=== PATIENT | female | born 1965 | race Caucasian/White ===

== ENCOUNTER 2023-11-21 09:49 | Outpatient (OUT) | payer OTHER, SELFPAY ==
--- NOTE | 2023-11-21 09:54 | MM_ITS ---
Patient Name: NAVA BARLOW MR#: [id number] : 1965 Exam Date: 11/21/2023 Ordering Doctor: MARIXA ESPINOZA RADIOLOGY REPORT PROCEDURE: MM TOMOSYNTHESIS SCREENING BI COMPARISON: MG MAMM SCREEN 3D JUSTO CAD, 10/23/2021. MG MAMM SCREEN 3D JUSTO CAD, 11/17/2022. INDICATIONS: Screening Calculator Name NCI Breast Cancer Risk Assessment Tool 5 Year Breast Cancer Risk 2.70% Lifetime Breast Cancer Risk 13.90% Personal Breast Cancer No Personal Ovarian Cancer No Treatments None Family Cancers Mother with breast cancer at age 67. LOCATION: [facility] BREAST COMPOSITION: The breasts are heterogeneously dense,which may obscure small masses. FINDINGS: DIAGNOSTIC CATEGORY 2--BENIGN FINDING. NO CHANGE FROM COMPARISON. Scattered benign-appearing calcifications are present. RIGHT BREAST: No significant suspicious finding. LEFT BREAST: No significant suspicious finding. RECOMMENDATIONS: ROUTINE MAMMOGRAM AND CLINICAL EVALUATION IN 12 MONTHS. PLEASE NOTE: A NORMAL MAMMOGRAM DOES NOT EXCLUDE THE POSSIBILITY OF BREAST CANCER. A CLINICALLY SUSPICIOUS PALPABLE LUMP SHOULD BE BIOPSIED. Dictated by: Tony Parsons MD on 11/21/2023 at 10:47 Approved by: Tony Parsons MD on 11/21/2023 at 11:04
== END 2023-11-21 09:50 | disposition home or self-care (01) ==
LOC: MAMMO 09:49
DX: Z12.31 Encounter for screening mammogram for malignant neoplasm of breast (principal); Z80.3 Family history of malignant neoplasm of breast
CPT/HCPCS: 77063; 77067

== ENCOUNTER 2023-11-21 10:35 | Outpatient (OUT) | payer OTHER, SELFPAY ==
[2023-11-21 11:08] LABS: Hematocrit 39.9 % (36.0-48.0); Hemoglobin 12.8 g/dL (12.0-16.0); Mean Corpuscular HGB Conc 32.1 g/dL (29.9-35.2); Mean Corpuscular Hemoglobin 31.1 pg (26.7-34.0); Mean Corpuscular Volume 97.1 fL (81.0-99.0); Platelet Count 199 10^3/uL (150-450); Red Blood Count 4.11 10^6/uL (4.20-5.40); Red Cell Distribution Width 12.8 % (11.0-15.0); White Blood Count 6.7 10^3/uL (4.0-11.0)
[2023-11-21 11:41] LABS: Estimated Average Glucose 128 mg/dL; Glycohemoglobin A1C 6.1 % (4.5-6.2)
[2023-11-21 12:14] LABS: Alanine Aminotransferase 26 U/L (14-59); Albumin Globulin Ratio 1.4; Alkaline Phosphatase 70 U/L (46-116); Aspartate Amino Transferase 14 U/L (15-37); BUN Creatinine Ratio 32.4; Bilirubin Total 0.8 mg/dL (0.2-1.0); Calcium 9.3 mg/dL (8.5-10.1); Carbon Dioxide 27.6 mmol/L (21.0-32.0); Chloride 107 mmol/L (98-107); Chol HDL Ratio 2.8; Cholesterol 126 mg/dL (<=200); Estimated GFR (African America >60 (>=60); Estimated GFR (Non-African Ame >60 (>=60); Globulin 2.8 g/dL; Glucose 109 mg/dL (74-106); HDL Cholesterol 45 mg/dL (40-60); LDL Cholesterol Calculated 64.2 mg/dL; Potassium 3.6 mmol/L (3.5-5.1); Sodium 143 mmol/L (136-145); Total Protein 6.8 g/dL (6.4-8.2); Triglycerides 84 mg/dL (<=150); VLDL CHOLESTEROL 16.8 mg/dL
== END 2023-11-21 10:36 | disposition home or self-care (01) ==
LOC: LAB 10:37
DX: Z12.31 Encounter for screening mammogram for malignant neoplasm of breast (principal); Z80.3 Family history of malignant neoplasm of breast; E78.5 Hyperlipidemia, unspecified; R73.09 Other abnormal glucose
CPT/HCPCS: 36415; 77063; 77067; 80053; 80061; 83036; 85027

== ENCOUNTER 2024-06-11 11:38 | Emergency (ER) | payer OTHER, SELFPAY ==
[2024-06-11 11:42] VITALS: BP 118/75; PULSE 92; O2SAT 100; BMI 21.9
[2024-06-11 11:45] VITALS: TEMP 36.8
--- NOTE | 2024-06-11 12:06 | CT_ITS ---
The [address] [address] Patient Name: NAVA BARLOW MRN: [id number] date: 1965 Sex: F Assigned Patient Location: ER Current Patient Location: ER Accession/Order Number: [id number] Exam Date: 06/11/2024 12:50 Report Date: 06/11/2024 13:47 At the request of: JOHANNY UMANA Procedure: CT abdomen pelvis w con EXAM: CT abdomen pelvis w con HISTORY: rlq pain, possible stain COMPARISON: None. TECHNIQUE: Following the intravenous administration of 100 cc of Omnipaque 300, axial soft tissue windows of the abdomen and pelvis were performed with coronal and sagittal reformats. Findings: ABDOMEN: Subtle focal fatty infiltration within segment 4 of the liver adjacent to the falciform ligament. The gallbladder, spleen, pancreas, and adrenal glands are unremarkable. Unremarkable left kidney. Nonobstructing right renal stones. The largest measures approximately 0.7 cm. There is mild to moderate right-sided collecting system dilatation to the level of the proximal ureter where there is a nonobstructing 0.5 cm stone. Evaluation of the bowel is limited given the absence of oral contrast. No bowel obstruction. The appendix is nondilated. The aorta is normal caliber. Mild atherosclerotic disease. No enlarged abdominal lymph nodes or free abdominal fluid. Pelvis: The bladder is nondistended limiting its evaluation. The uterus is present and unremarkable within the limits of CT. No enlarged pelvic lymph nodes or free pelvic fluid. No aggressive sclerotic or lytic osseous lesions. CT/CT abdomen pelvis w con IMPRESSION: 1. Obstructing stone within the proximal right ureter resulting in mild to moderate right-sided collecting system dilatation 2. Nonobstructing right renal stones. 3. Other nonemergent findings, as described above. Electronically authenticated by: ROSELIA LONDON Date: 06/11/2024 13:47
--- OUTSIDE RECORDS SUMMARY | 2024-06-11 12:06 | XMS_ITS | CCD ---
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 Role Phone NADEEM QUEZADA Attending Unavailable NADEEM QUEZADA Consulting Unavailable NADEEM QUEZADA Admitting Unavailable ANGLIM, MARIXA Primary Care Unavailable TOD CUMMINS Consulting Unavailable ANGLIM, MARIXA Primary Care Unavailable ANGLIM, MARIXA Admitting Unavailable ANGLIM, MARIXA Attending Unavailable ANGLIM, MARIXA Attending Unavailable DR LONNIE TERRAZAS V Consulting Unavailable ANGLIM, MARIXA Primary Care Unavailable ANGLIM, MARIXA Admitting Unavailable ANGLIM, MARIXA Consulting Unavailable Problems Problem Classification Problem Date Documented Da te Episodic/Chronic Abdominal pain (4 sources) Unspecified abdominal pain; Translations: [UNSPECIFIED ABDOMINAL PAIN] Onset: 09-12-2022 Episodic Calculus of urinary tract (2 sources) Calculus of kidney; Translations: [Personal history of urinary calculi] Onset: 09-14-2022 Episodic Diabetes mellitus without complication (4 sources) Other abnormal glucose; Translations: [OTHER ABNORMAL GLUCOSE] Onset: 11-17-2022 Episodic Disorders of lipid metabolism (2 sources) Hyperlipidemia, unspecified; Translations: [Pure hypercholesterolemi a, unspecified] Onset: 09-14-2022 Chronic Other screening for suspected conditions (not mental disorders or infectious disease) (2 sources) Encounter for screening for other suspected endocrine disorder; Translations: [Encounter for screening mammogram for malignant neoplasm of breast] Onset: 11-24-2022 Episodic Residual codes; unclassified (1 source) Family history of malignant neoplasm of breast; Translations: [FAMILY HX MALIG NEOPLASM OF BREAST] Onset: 11-24-2022 Episodic Screening and history of mental health and substance abuse codes (1 source) Personal history of nicotine dependence; Translations: [PERSONAL HISTORY OF NICOTINE DEPEND] Onset: 09-14-2022 Episodic Results Test Name Value Interpretation Reference Range Facility GLYCOHEMOGLOBIN A1Con 2022 ADA RECOMMENDATION SEE BELOW Normal [facility] Comment on above: Result Comment: ADA RECOMMENDED LIMIT 4.0 - 6.0 ADA THERAPEUTIC TARGET < 7.0 ACTION SUGGESTED > 7.0 Performed By: #### T SHRFT4, CMP, LIPID #### [facility] [address] [address] [address] Crissy Landis Glucose [Mass/Vol] 128 mg/dL Normal [facility] Comment on above: Performed By: #### T SHRFT4, CMP, LIPID #### [facility] [address] [address] [address] Crissy Landis HbA1c (Bld) [Mass fraction] 6.1 % Normal 4.5-6.2 [facility] Comment on above: Performed By: #### T CADEN4, CMP, LIPID #### [facility] [address] [place] [address] Dr. Crissy Landis HEMOGRAM AND PLATELon 2022 Hematocrit (Bld) [Volume fraction] 42.8 % Normal 36.0-48.0 [facility] Comment on above: Performed By: #### H H #### [facility] [address] [place] [address] Dr. Crissy Landis Hemoglobin (Bld) [Mass/Vol] 14.4 g/dL Normal 12.0-16.0 [facility] Comment on above: Performed By: #### H H #### [facility] [address] [place] [address] Dr. Crissy Landis MCH (RBC) [Entitic mass] 31.7 pg Normal 26.7-34.0 [facility] Comment on above: Performed By: #### H H #### [facility] [address] [place] [address] Dr. Crissy Landis MCHC (RBC) [Mass/Vol] 33.6 g/dL Normal 29.9-35.2 [facility] Comment on above: Performed By: #### H H #### [facility] [address] [place] [address] Dr. Crissy Landis MCV (RBC) [Entitic vol] 94.3 fL Normal 81.0-99.0 [facility] Comment on above: Performed By: #### H H #### [facility] [address] [address] [address] Crissy Landis PLT 214 103/ul Normal 150-450 [facility] Comment on above: Performed By: #### H H #### [facility] [address] [address] [address] Crissy Landis RBC 4.54 106/ul Normal 4.20-5.40 [facility] Comment on above: Performed By: #### H H #### [facility] [address] [address] [address] Crissy Landis WBC 6.8 103/ul Normal 4.0-11.0 [facility] Comment on above: Performed By: #### H H #### [facility] [address] [place] [address] Dr. Crissy Landis LIPID PROFILEon 11-17-2022 CHOL-HDL RATIO NORM SEE BELOW Normal [facility] Comment on above: Result Comment: 3.3 - 4.4 LOW RISK 4.4 - 7.1 AVERAGE RISK 7.1 - 11.0 MODERATE RISK >11.0 HIGH RISK Performed By: #### T SHRFT4, CMP, LIPID #### [facility] [address] [place] [address] Dr. Crissy Landis Cholesterol [Mass/Vol] 130 mg/dL Normal <=200 [facility] Comment on above: Performed By: #### T SHRFT4, CMP, LIPID #### [facility] [address] [place] [address] Dr. Crissy Landis Cholesterol in HDL [Mass/Vol] 53 mg/dL Normal 40-60 [facility] Comment on above: Performed By: #### T SHRFT4, CMP, LIPID #### [facility] [address] [place] [address] Dr. Crissy Landis Cholesterol in LDL [Mass/Vol] 56.6 mg/dL Normal [facility] Comment on above: Performed By: #### T SHRFT4, CMP, LIPID #### [facility] [address] [address] [address] Crissy Landis Cholesterol.total/Cho lesterol in HDL [Mass ratio] 2.5 {ratio} Normal [facility] Comment on above: Performed By: #### T CADEN4, CMP, LIPID #### [facility] [address] [address] [address] Crissy Landis HDL NORMAL > or = 60 mg/dl - LO W CARDIOVASCULAR RISK <40 mg/dl - HIGH CARDIOVASCULAR RISK Normal [facility] Comment on above: Performed By: #### T CADEN4, CMP, LIPID #### [facility] [address] [address] [address] Crissy Landis LDL CALC NORMAL SEE BELOW Normal [facility] Comment on above: Result Comment: <100 mg/dl OPTIMAL 100 - 129 mg/dl NEAR OR ABOVE OPTIMAL 130 - 159 mg/dl BORDERLINE HIGH 160 - 189 mg/dl HIGH >190 mg/dl VERY HIGH Performed By: #### T CADEN4, CMP, LIPID #### [facility] [address] [address] [address] Crissy Landis Triglyceride [Mass/Vol] 102 mg/dL Normal <=150 [facility] Comment on above: Performed By: #### T CADEN4, CMP, LIPID #### [facility] [address] [address] [address] Crissy Landis VLDL CALC 20.4 mg/dL Normal [facility] Comment on above: Performed By: #### T CADEN4, CMP, LIPID #### [facility] [address] [address] [address] Crissy Landis MG MAMM SCREEN 3D JUSTO CADon 11-17-2022 MG MAMM SCREEN 3D JUSTO CAD Patient: NAVA BARLOW Exam Date: 11/17/2022 : 1965 Gender:F Ordering : MARIXA ESPINOZA Admission #: [id number] Family : Order #: [id number] CLICK HERE TO VIEW EXAM RADIOLOGY REPORT PROCEDURE: MAMMOGRAM SCREENING 3D BILATERAL CAD COMPARISON: MG MAMM SCREEN 3D JUSTO CAD, 10/23/2021. MG MAMM SCREEN JUSTO W CAD, 05/07/2020. INDICATIONS: Screening mammography Calculator Name NCI Breast Cancer Risk Assessment Tool 5 Year Breast Cancer Risk 2.60% Lifetime Breast Cancer Risk 14.20% Personal Breast Cancer No Personal Ovarian Cancer No Treatments None Family Cancers Mother with breast cancer at age 67. LOCATION: [facility] BREAST COMPOSITION: Heterogeneously dense,which may obscure small masses. FINDINGS: DIAGNOSTIC CATEGORY 2--BENIGN FINDING. NO CHANGE FROM COMPARISON. Scattered benign-appearing nodules are present. Scattered benign-appearing calcifications are present. Scattered benign-appearing lymph nodes are present. RIGHT BREAST: No significant suspicious finding. LEFT BREAST: No significant suspicious finding. RECOMMENDATIONS: ROUTINE MAMMOGRAM AND CLINICAL EVALUATION IN 12 MONTHS. PLEASE NOTE: A NORMAL MAMMOGRAM DOES NOT EXCLUDE THE POSSIBILITY OF BREAST CANCER. A CLINICALLY SUSPICIOUS PALPABLE LUMP SHOULD BE BIOPSIED. Dictated by: Lonnie Terrazas MD on 11/17/2022 at 13:48 Approved by: Lonnie Terrazas MD on 11/17/2022 at 13:50 Normal [facility] PROF 14(COMP METB)on 023 Albumin [Mass/Vol] 4.0 g/dL Normal 3.4-5.0 [facility] Comment on above: Performed By: #### T SHRFT4, CMP, LIPID #### [facility] [address] [address] [address] Crissy Landis Albumin/Globulin [Mass ratio] 1.2 {ratio} Normal [facility] Comment on above: Performed By: #### T SHRFT4, CMP, LIPID #### [facility] [address] [address] [address] Crissy Landis ALP [Catalytic activity/Vol] 83 U/L Normal 46-116 [facility] Comment on above: Performed By: #### T SHRFT4, CMP, LIPID #### [facility] [address] [place], [place] [address] Dr. Crissy Landis ALT [Catalytic activity/Vol] 39 U/L Normal 14-59 [facility] Comment on above: Performed By: #### T SHRFT4, CMP, LIPID #### [facility] [address] [place], [place] [address] Dr. Crissy Landis Anion gap [Moles/Vol] 13.8 mmol/L Normal [facility] Comment on above: Performed By: #### T SHRFT4, CMP, LIPID #### [facility] [address] [address] [address] Crissy Landis AST [Catalytic activity/Vol] 17 U/L Normal 15-37 [facility] Comment on above: Performed By: #### T SHRFT4, CMP, LIPID #### [facility] [address] [address] [address] Crissy Landis Bilirubin [Mass/Vol] 0.9 mg/dL Normal 0.2-1.0 [facility] Comment on above: Performed By: #### T SHRFT4, CMP, LIPID #### [facility] [address] [place] [address] Dr. Crissy Landis Calcium [Mass/Vol] 9.2 mg/dL Normal 8.5-10.1 [facility] Comment on above: Performed By: #### T SHRFT4, CMP, LIPID #### [facility] [address] [address] [address] Crissy Landis Chloride [Moles/Vol] 105 mmol/L Normal 98-107 [facility] Comment on above: Performed By: #### T SHRFT4, CMP, LIPID #### [facility] [address] [address] [address] Crissy Landis CO2 [Moles/Vol] 27.0 mmol/L Normal 21.0-32.0 [facility] Comment on above: Performed By: #### T SHRFT4, CMP, LIPID #### [facility] [address] [place] [address] Dr. Crissy Landis Creatinine [Mass/Vol] 0.85 mg/dL Normal 0.55-1.02 [facility] Comment on above: Performed By: #### T SHRFT4, CMP, LIPID #### [facility] [address] [place] [address] Dr. Crissy Landis EGFR-AF DUTCH >60 Normal >=60 [facility] Comment on above: Performed By: #### T SHRFT4, CMP, LIPID #### [facility] [address] [address] [address] Crissy Landis EGFR-NON AF DUTCH >60 Normal >=60 [facility] Comment on above: Performed By: #### T SHRFT4, CMP, LIPID #### [facility] [address] [address] [address] Crissy Landis Globulin (S) [Mass/Vol] 3.4 g/dL Normal [facility] Comment on above: Performed By: #### T SHRFT4, CMP, LIPID #### [facility] [address] [place] [address] Dr. Crissy Landis Glucose [Mass/Vol] 97 mg/dL Normal 74-106 [facility] Comment on above: Performed By: #### T SHRFT4, CMP, LIPID #### [facility] [address] [place] [address] Dr. Crissy Landis Potassium [Moles/Vol] 3.8 mmol/L Normal 3.5-5.1 [facility] Comment on above: Performed By: #### T SHRFT4, CMP, LIPID #### [facility] [address] [place] [address] Dr. Crissy Landis Protein [Mass/Vol] 7.4 g/dL Normal 6.4-8.2 [facility] Comment on above: Performed By: #### T SHRFT4, CMP, LIPID #### [facility] [address] [place] [address] Dr. Crissy Landis Sodium [Moles/Vol] 142 mmol/L Normal 136-145 [facility] Comment on above: Performed By: #### T SHRFT4, CMP, LIPID #### [facility] [address] [place] [address] Dr. Crissy Landis Urea nitrogen [Mass/Vol] 14.0 mg/dL Normal 7.0-18.0 [facility] Comment on above: Performed By: #### T SHRFT4, CMP, LIPID #### [facility] [address] [place] [address] Dr. Crissy Landis Urea nitrogen/Creatinine [Mass ratio] 16.5 mg/mg Normal [facility] Comment on above: Performed By: #### T SHRFT4, CMP, LIPID #### [facility] [address] [place] [address] Dr. Crissy Landis TSH W/ REFLEX TO FT4on 11-17 TSH 1.597 uIU/mL Normal 0.358-3.740 [facility] Comment on above: Performed By: #### T SHRFT4, CMP, LIPID #### [facility] [address] [place] [address] Dr. Crissy Landis CBC AUTO DIFFon 09-12-2022 BASO # 0.1 103/ul Normal 0.0-0.1 [facility] Comment on above: Performed By: #### C BC #### [facility] [address] [place] [address] Dr. Crissy Landis Basophils/100 WBC (Bld) 0.4 % Normal 0.2-2.0 [facility] Comment on above: Performed By: #### C BC #### [facility] [address] [place] [address] Dr. Crissy Landis EO # 0.0 103/ul Normal 0.0-0.7 [facility] Comment on above: Performed By: #### C BC #### [facility] [address] [place] [address] Dr. Crissy Landis Eosinophils/100 WBC (Bld) 0.2 % Critically low 0.9-7.0 [facility] Comment on above: Performed By: #### C BC #### [facility] [address] [place] [address] Dr. Crissy Landis Erythrocyte distribution width (RBC) [Ratio] 12.7 % Normal 11.0-15.0 [facility] Comment on above: Performed By: #### C BC #### [facility] [address] [place] [address] Dr. Crissy Landis Hematocrit (Bld) [Volume fraction] 42.8 % Normal 36.0-48.0 [facility] Comment on above: Performed By: #### C BC #### [facility] [address] [place] [address] Dr. Crissy Landis Hemoglobin (Bld) [Mass/Vol] 14.6 g/dL Normal 12.0-16.0 [facility] Comment on above: Performed By: #### C BC #### [facility] [address] [place] [address] Dr. Crissy Landis IG # 0.05 10e3/ul Critically high 0.00-0.03 [facility] Comment on above: Performed By: #### C BC #### [facility] [address] [place] [address] Dr. Crissy Landis IG % 0.4 % Normal 0.0-0.5 [facility] Comment on above: Performed By: #### C BC #### [facility] [address] [place] [address] Dr. Crissy Landis LYMPH # 1.4 103/ul Normal 1.2-3.8 [facility] Comment on above: Performed By: #### C BC #### [facility] [address] [place] [address] Dr. Crissy Landis Lymphocytes/100 WBC (Bld) 10.8 % Critically low 20.5-60.0 [facility] Comment on above: Performed By: #### C BC #### [facility] [address] [place] [address] Dr. Crissy Landis MANUAL DIFF REQ NO Normal [facility] Comment on above: Performed By: #### C BC #### [facility] [address] [place] [address] Dr. Crissy Landis MCH (RBC) [Entitic mass] 31.5 pg Normal 26.7-34.0 [facility] Comment on above: Performed By: #### C BC #### [facility] [address] [place] [address] Dr. Crissy Landis MCHC (RBC) [Mass/Vol] 34.1 g/dL Normal 29.9-35.2 [facility] Comment on above: Performed By: #### C BC #### [facility] [address] [place] [address] Dr. Crissy Landis MCV (RBC) [Entitic vol] 92.4 fL Normal 81.0-99.0 [facility] Comment on above: Performed By: #### C BC #### [facility] [address] [place] [address] Dr. Crissy Landis MONO # 0.6 103/ul Normal 0.3-0.8 [facility] Comment on above: Performed By: #### C BC #### [facility] [address] [place] [address] Dr. Crissy Landis Monocytes/100 WBC (Bld) 4.3 % Normal 1.7-12.0 [facility] Comment on above: Performed By: #### C BC #### [facility] [address] [place] [address] Dr. Crissy Landis NEUT # 11.0 103/ul Critically high 1.4-6.5 [facility] Comment on above: Performed By: #### C BC #### [facility] [address] [place] [address] Dr. Crissy Landis Neutrophils/100 WBC (Bld) 83.9 % Critically high 43.0-75.0 [facility] Comment on above: Performed By: #### C BC #### [facility] [address] [place] [address] Dr. Crissy Landis Platelet mean volume (Bld) [Entitic vol] 9.0 fL Critically low 9.5-13.5 [facility] Comment on above: Performed By: #### C BC #### [facility] [address] [place] [address] Dr. Crissy Landis PLT 240 103/ul Normal 150-450 [facility] Comment on above: Performed By: #### C BC #### [facility] [address] [place] [address] Dr. Crissy Landis RBC 4.63 106/ul Normal 4.20-5.40 [facility] Comment on above: Performed By: #### C BC #### [facility] [address] [place] [address] Dr. Crissy Landis WBC 13.1 103/ul Critically high 4.0-11.0 [facility] Comment on above: Performed By: #### C BC #### [facility] [address] [address] [address] ABD/PELVIS WO CONon 09-12 CT ABD/PELVIS WO CON EXAMINATION: CT ABD/PELVIS WO CON, 09/12/2022 8:52 AM PST HISTORY: CALCULUS OF KIDNEY COMPARISON: None. TECHNIQUE: CT scan of the abdomen and pelvis was performed without IV contrast. CT dose reduction technique was used, including Automated Exposure Control. FINDINGS: Lung: No significant finding. Liver: No significant finding. Gallbladder: No significant finding. Spleen: No significant finding. Pancreas: No significant finding. Adrenal glands: No significant finding. Kidneys, ureters and bladder: 7 mm obstructing right distal ureteral calculus with moderate right hydroureteral cyst. Multiple additional right-sided nonobstructive renal calculi measuring up to 7 mm. No left-sided renal calculi. Bladder is decompressed. Bowel: Normal appendix. Peritoneum/retroperit oneum: No significant finding. Lymph nodes: No significant finding. Vessels: No significant finding. Body wall: No significant finding. Reproductive: No significant finding. Bones: No significant finding. IMPRESSION: 7 mm obstructing distal right ureteral calculus with moderate right hydroureteronephrosis . Multiple additional nonobstructive right renal calculi measuring up to 7 mm. Electronically authenticated by: TOD CUMMINS Date: 2022-09-12 13:10 Normal [facility] CULTURE URINEon 09-12-2022 CULTURE URINE Culture Observations : NO GROWTH. Normal [facility] Comment on above: Performed By: #### U RCX #### [facility] [address] [place] [address] Dr. Crissy Landis ER URINE PROFILEon 3 Bilirubin Ql (U) Negative Normal NEGATIVE [facility] Comment on above: Performed By: #### NICOLE SCALES #### [facility] [address] [place] [address] Dr. Crissy Landis Clarity (U) CLEAR Normal CLEAR [facility] Comment on above: Performed By: #### E NICOLE BENTLEY #### [facility] [address] [place] [address] Dr. Crissy Landis Color (U) YELLOW Normal YELLOW [facility] Comment on above: Performed By: #### E JOSR UMICRO #### [facility] [address] [place] [address] Dr. Crissy SMITH A micrscopic examination will be performed if indicated. Normal [facility] Comment on above: Performed By: #### E RUR, UMICRO #### [facility] [address] [place] [address] Dr. Crissy Landis Glucose Ql (U) Negative Normal NEGATIVE [facility] Comment on above: Performed By: #### E RUR, UMICRO #### [facility] [address] [place] [address] Dr. Crissy Landis Hemoglobin Ql (U) LARGE Abnormal NEGATIVE [facility] Comment on above: Performed By: #### E RUR, UMICRO #### [facility] [address] [place] [address] Dr. Crissy Landis Ketones Ql (U) Negative Normal NEGATIVE [facility] Comment on above: Performed By: #### E RUR, UMICRO #### [facility] [address] [place] [address] Dr. Crissy Landis LEUKOCYTES TRACE Abnormal NEGATIVE [facility] Comment on above: Performed By: #### E RUR, UMICRO #### [facility] [address] [place] [address] Dr. Crissy Landis Nitrite Ql (U) Negative Normal NEGATIVE [facility] Comment on above: Performed By: #### E RUR, UMICRO #### [facility] [address] [place] [address] Dr. Crissy Landis pH (U) 5.0 [pH] Normal 5-9 [facility] Comment on above: Performed By: #### E RUR, UMICRO #### [facility] [address] [place] [address] Dr. Crissy Landis Protein (U) [Mass/Vol] 100 mg/dL Abnormal NEGATIVE/ TRACE [facility] Comment on above: Performed By: #### E RUR, UMICRO #### [facility] [address] [place] [address] Dr. Crissy Landis SPEC GRAVITY >=1.030 Abnormal 1.005-<=1.025 [facility] Comment on above: Performed By: #### THERESA SCALESRO #### [facility] [address] [place] [address] Dr. Crissy Landis UR MICRO IND INDICATED Normal [facility] Comment on above: Performed By: #### Jethro BENTLEY UMICRO #### [facility] [address] [place] [address] Dr. Crissy Landis Urobilinogen Qn (U) 0.2 {Pradip'U}/dL Normal 0.2 - 1. 0 [facility] Comment on above: Performed By: #### THERESA SCALESRO #### [facility] [address] [place] [address] Dr. Crissy Landis PROF CHEM 8 (BAS METB)on Anion gap [Moles/Vol] 13.1 mmol/L Normal [facility] Comment on above: Performed By: #### T CADEN4, CMP, LIPID #### [facility] [address] [place] [address] Dr. Crissy Landis Calcium [Mass/Vol] 9.5 mg/dL Normal 8.5-10.1 [facility] Comment on above: Performed By: #### T KIRSTENFT4, CMP, LIPID #### [facility] [address] [place] [address] Dr. Crissy Landis Chloride [Moles/Vol] 102 mmol/L Normal 98-107 [facility] Comment on above: Performed By: #### T KIRSTENFT4, CMP, LIPID #### [facility] [address] [place] [address] Dr. Crissy Landis CO2 [Moles/Vol] 27.9 mmol/L Normal 21.0-32.0 [facility] Comment on above: Performed By: #### T SHRFT4, CMP, LIPID #### [facility] [address] [address] [address] Crissy Landis Creatinine [Mass/Vol] 0.88 mg/dL Normal 0.55-1.02 [facility] Comment on above: Performed By: #### T CADEN4, CMP, LIPID #### [facility] [address] [place] [address] Dr. Crissy Landis EGFR-AF DUTCH >60 Normal >=60 [facility] Comment on above: Performed By: #### T CADEN4, CMP, LIPID #### [facility] [address] [address] [address] Crissy Landis EGFR-NON AF DUTCH >60 Normal >=60 [facility] Comment on above: Performed By: #### T CADEN4, CMP, LIPID #### [facility] [address] [place] [address] Dr. Crissy Landis Glucose [Mass/Vol] 160 mg/dL Critically high 74-106 [facility] Comment on above: Performed By: #### T CADEN4, CMP, LIPID #### [facility] [address] [address] [address] Crissy Landis Potassium [Moles/Vol] 4.0 mmol/L Normal 3.5-5.1 [facility] Comment on above: Performed By: #### T CADEN4, CMP, LIPID #### [facility] [address] [address] [address] Crissy Landis Sodium [Moles/Vol] 139 mmol/L Normal 136-145 [facility] Comment on above: Performed By: #### T CADEN4, CMP, LIPID #### [facility] [address] [address] [address] Crissy Landis Urea nitrogen [Mass/Vol] 19.0 mg/dL Critically high 7.0-18.0 [facility] Comment on above: Performed By: #### T KIRSTENFT4, CMP, LIPID #### [facility] [address] [address] [address] Crissy Landis Urea nitrogen/Creatinine [Mass ratio] 21.6 mg/mg Normal [facility] Comment on above: Performed By: #### T SHRFT4, CMP, LIPID #### [facility] [address] [place] [address] Dr. Crissy Landis URINE MICROSCOPIC ONLYon BACTERIA SMALL Abnormal NONE SEEN [facility] Comment on above: Performed By: #### Jethro BENTLEY, UMICRO #### [facility] [address] [place] [address] Dr. Crissy Landis Bacteria identified Cx Nom (U) INDICATED Normal [facility] Comment on above: Performed By: #### Jethro BENTLEY, UMICRO #### [facility] [address] [place] [address] Dr. Crissy Landis CAST NONE SEEN Normal NONE SEEN [facility] Comment on above: Performed By: #### Jethro BENTLEY UMICRO #### [facility] [address] [place] [address] Dr. Crissy Landis Crystals LM Nom (Urine sed) NONE SEEN Normal NONE SEEN [facility] Comment on above: Performed By: #### Jethro BENTLEY UMICRO #### [facility] [address] [place] [address] Dr. Crissy Landis Epithelial cells LM Ql (Urine sed) RARE Normal NONE SEEN /RARE [facility] Comment on above: Performed By: #### Jethro BENTLEY UMICRO #### [facility] [address] [place] [address] Dr. Crissy Landis MUCOUS NONE SEEN Normal NONE SEEN [facility] Comment on above: Performed By: #### Jethro BENTLEY UMICRO #### [facility] [address] [place] [address] Dr. Crissy Landis RBC 20-50 Abnormal 0-2 [facility] Comment on above: Performed By: #### Jethro BENTLEY UMICRO #### [facility] [address] [place] [address] Dr. Crissy Landis WBC 2-5 Abnormal NONE SEEN [facility] Comment on above: Performed By: #### Jethro BENTLEY UMICRO #### [facility] [address] [place] [address] Dr. Crissy Landis Encounters Encounter Date Encounter Type Care Provider Facility Start: 11-17-2022 End: 11-18-2022 ambulatory MARIXA ESPINOZA Facility:[facility] Start: 09-12-2022 End: 09-12-2022 ambulatory NADEEM QUEZADA Facility:[facility] Start: 03-10-2022 ambulatory MARIXA ESPINOZA Facility:[facility] 1 Payers Date Payer Category Payer Unknown [id number] 1965 Unknown [id number] 1965 Unknown [id number] [id number] 1960 Self-pay 1960 Unknown [id number] Summary Purpose Family History No Family History Records Found Advance Directives No Advanced Directives Records Found Additional Source Comments INFORMATION SOURCE (unrecogn ized section and content) DATE CREATED AUTHOR 11/25/2022 [facility] FOR RECORDS PERTAINING TO PATIENTS WHO ARE OR HAVE BEEN ENROLLED IN A CHEMICAL DEPENDENCY/SUBSTANCEABUSE PROGRAM, SOME INFORMATION MAY BE OMITTED. This clinical summary was aggregated from multiple sources. Caution should be exercised in using it in the provision of clinical care. This summary normalizes information from multiple sources, and as a consequence, information in this document may materially change the coding, format and clinical context of patient data. In addition, data may be omitted in some cases. CLINICAL DECISIONS SHOULD BE BASED ON THE PRIMARY CLINICAL RECORDS. [employer] provides no warranty or guarantee of the accuracy or completeness of information in this document.
--- NOTE | 2024-06-11 12:09 | ED.GENADUL1 ---
HPI HPI - General Adult General Chief complaint: Urogenital-Female Stated complaint: ABDOMINAL PAIN Time Seen by Provider: 06/11/24 12:05 Source: patient Mode of arrival: walk-in Limitations: no limitations History of Present Illness HPI narrative: Patient is a 58-year-old female who is presenting to the ER today with chief complaint of right lower back pain, right flank pain and right lower quadrant pain that started this morning. Patient is uncomfortable, holding her right lower back and right flank, looks like she is having discomfort. Patient states she is probably passed approximately 6 kidney stones in her life, she has never had lithotripsy, she did have laser surgery done approximately 40 years ago in her early 20s. Patient has no fever or chills. Positive nausea, no vomiting. No chest pain or shortness of breath. Patient was brought to the ER by her friend. Patient still has both of her kidneys, last kidney stone that she passed was approximately 2 or 3 years ago. No other acute complaints at this time. All systems are negative except as noted/marked. All systems reviewed and otherwise negative. Nurses note and vital signs reviewed and patient is not hypoxic. General: The patient appears well and in no apparent distress. Patient is resting comfortably on cart. Patient is not toxic, lethargic, or listless Skin: Warm, dry, no pallor noted. There is no rash noted. No petechiae, purpura. Head: Normocephalic, atraumatic Eye: Normal conjunctiva, no drainage, EOMI. PERRL Ears, Nose, Mouth, and Throat: oral mucosa is moist. Nares patent. Mouth without vesicles. Cardiovascular: Regular Rate and Rhythm, no murmur, gallop, rub Respiratory: Patient is in no distress, no accessory muscle use, lungs are clear to auscultation, no wheezing, rales or rhonchi Back: non-tender, patient has moderate right CVA tenderness to palpation, mild to right flank tenderness to palpation, mild right lower quadrant tenderness to palpation, mild suprapubic tenderness to palpation, no left-sided lower back, flank, lower quadrant tenderness palpation. No rash, no peritoneal signs.. No CT LS midline pain GI: no tenderness to palpation, no masses appreciated. No rebound, guarding, or rigidity noted. No distention Musculoskeletal: Patient has full range of motion of all of the extremities, no motor, sensory, or focal neurological deficits Neurological: A&O x4, normal speech Psychiatric: Cooperative Related Data Previous Rx's ?Medication ?Instructions ?Recorded cephalexin 500 mg capsule 500 mg PO Q12H 7 days #14 caps 06/11/24 hydrocodone 5 mg-acetaminophen 325 1 tab PO Q4H PRN pain #10 tabs 06/11/24 mg tablet ketorolac 10 mg tablet 10 mg PO Q8H PRN pain 1 day #10 06/11/24 tabs ondansetron 4 mg disintegrating 4 mg PO Q4H PRN nausea and 06/11/24 tablet vomiting 3 days #6 tabs tamsulosin 0.4 mg capsule (Flomax) 0.4 mg PO DAILY 7 days #7 caps 06/11/24 Allergies Allergy/AdvReac Type Severity Reaction Status Date / Time No Known Drug Allergies Allergy Verified 06/11/24 11:42 Opioid HPI Opioid Management Most Recent Opioid Data: Last Pain Scale 8 06/11/24 12:21 06/11/24 Last MAR Pain Assessment 06/11/24 12:21 PFSH PFSH Social History Little interest or pleasure in doing things: not at all Feeling down, depressed, or hopeless: not at all Exam Constitutional Vital Signs, click to edit/add: Last Vital Signs Temp 98.3 F 06/11/24 11:45 Pulse 88 06/11/24 13:15 Resp 18 06/11/24 11:42 BP 106/66 06/11/24 13:15 Pulse Ox 100 06/11/24 11:42 O2 Del Method Room Air 06/11/24 11:42 Course Vital Signs Vital signs: Vital Signs Pulse Rate 92 H 06/11/24 11:42 Respiratory Rate 18 06/11/24 11:42 Blood Pressure 118/75 06/11/24 11:42 Pulse Oximetry 100 06/11/24 11:42 Oxygen Delivery Method Room Air 06/11/24 11:42 Temperature 98.3 F 06/11/24 11:45 Pulse Rate 88 06/11/24 13:15 Respiratory Rate 18 06/11/24 11:42 Blood Pressure 106/66 06/11/24 13:15 Pulse Oximetry 100 06/11/24 11:42 Oxygen Delivery Method Room Air 06/11/24 11:42 Medical Decision Making MDM Narrative Medical decision making narrative: Patient will be given a dose of IV Toradol, morphine, Zofran. Lab work, CT scan will be done. Patient has a chronic 7 mm stone in the right kidney that patient is aware of. Patient has a new 5 mm stone that she is passing that is in the proximal ureter. Patient has mild to moderate hydro. Patient has urinary tract infection as well. Patient was given 1 g of Rocephin in the ER. Patient will increase fluids at home. She was sent home with a prescription of Zofran, Toradol, Hollywood, Flomax and Keflex. Urine cultures pending. Patient is from [place]. Patient thinks she has a urologist in [place] but unsure who it is. Patient was given Dr. Norman is a follow-up for urology if needed. Patient understands why to come back to the ER if intractable nausea, vomiting, pain, or any other acute concerns Lab Data Lab results reviewed: Yes I reviewed the patient's lab results Labs: Lab Results 06/11/24 06/11/24 Range/Units 11:50 12:20 WBC 10.8 (4.0-11.0) 10^3/uL RBC 4.35 (4.20-5.40) 10^6/uL Hgb 14.1 (12.0-16.0) g/dL Hct 42.0 (36.0-48.0) % MCV 96.6 (81.0-99.0) fL MCH 32.4 (26.7-34.0) pg MCHC 33.6 (29.9-35.2) g/dL RDW 12.6 (11.0-15.0) % Plt Count 243 (150-450) 10^3/uL MPV 9.4 L (9.5-13.5) fL Neut % (Auto) 81.4 H (43.0-75.0) % Lymph % (Auto) 12.4 L (20.5-60.0) % Harper % (Auto) 4.6 (1.7-12.0) % Eos % (Auto) 0.2 L (0.9-7.0) % Baso % (Auto) 0.9 (0.2-2.0) % Neut # (Auto) 8.8 H (1.4-6.5) 10^3/uL Lymph # (Auto) 1.3 (1.2-3.8) 10^3/uL Harper # (Auto) 0.5 (0.3-0.8) 10^3/uL Eos # (Auto) 0.0 (0.0-0.7) 10^3/uL Baso # (Auto) 0.1 (0.0-0.1) 10^3/uL Abs Immat Gran (auto) 0.05 H (0.00-0.03) 10^3/uL Imm/Tot Granulo (auto) 0.5 (0.0-0.5) % Sodium 143 (136-145) mmol/L Potassium 4.9 (3.5-5.1) mmol/L Chloride 107 (98-107) mmol/L Carbon Dioxide 25.6 (21.0-32.0) mmol/L Anion Gap 15.3 BUN 21.0 H (7.0-18.0) mg/dL Creatinine 0.94 (0.55-1.02) mg/dL Est GFR ( Amer) >60 (>=60 mL/min/1.73m^2) Est GFR (Non-Af Amer) >60 (>=60 mL/min/1.73m^2) BUN/Creatinine Ratio 22.3 Glucose 149 H (74-106) mg/dL Calcium 9.7 (8.5-10.1) mg/dL Total Bilirubin 0.7 (0.2-1.0) mg/dL AST 13 L (15-37) U/L ALT 21 (14-59) U/L Alkaline Phosphatase 79 (46-116) U/L Total Protein 7.2 (6.4-8.2) g/dL Albumin 4.2 (3.4-5.0) g/dL Globulin 3.0 g/dL Albumin/Globulin Ratio 1.4 Lipase 45.0 (16.0-77.0) U/L Urine Color Dk. orange (YELLOW) Urine Clarity Cloudy A (CLEAR) Urine pH 5.5 (5.0-9.0) Ur Specific Berne >=1.030 A (1.005-1.025) Urine Protein 100 A (NEG/TRACE) mg/dL Urine Glucose (UA) Negative (NEGATIVE) mg/dL Urine Ketones 15 A (NEGATIVE) mg/dL Urine Occult Blood Large A (NEGATIVE) Urine Nitrite Negative (NEGATIVE) Urine Bilirubin Small A (NEGATIVE) Urine Urobilinogen 1.0 (0.2-1.0) EU/dL Ur Leukocyte Esterase Trace A (NEGATIVE) Urine RBC >100 A (0-2) #/HPF Urine WBC 2-5 A (NONE SEEN) #/HPF Ur Squamous Epith Cells Rare (NONE/RARE) #/LPF Urine Crystals None seen (None Seen) #/HPF Urine Bacteria Moderate A (NONE SEEN) #/HPF Urine Casts None seen (NONE SEEN) #/LPF Urine Mucus None seen (NONE SEEN) Ur Culture Indicated? Yes Patient has evidence of urinary tract infection secondary to mild to moderate hydronephrosis. Patient has white blood cells 2-5, moderate bacteria, negative nitrate. Trace leuk esterase. Discharge Plan Discharge Chief Complaint: Urogenital-Female Clinical Impression: Urinary tract infection, Kidney stone on left side, Renal colic on left side Patient Disposition: Home, Self-Care Time of Disposition Decision: 13:58 Condition: Fair Prescriptions / Home Meds: New hydrocodone-acetaminophen 5-325 mg tablet 1 tab PO Q4H PRN (Reason: pain) Qty: 10 0RF ketorolac 10 mg tablet 10 mg PO Q8H PRN (Reason: pain) 1 Days Qty: 10 0RF tamsulosin [Flomax] 0.4 mg capsule 0.4 mg PO DAILY 7 Days Qty: 7 0RF cephalexin 500 mg capsule 500 mg PO Q12H 7 Days Qty: 14 0RF ondansetron 4 mg tablet,disintegrating 4 mg PO Q4H PRN (Reason: nausea and vomiting) 3 Days Qty: 6 0RF Print Language: [place] Instructions: Kidney Stones (ED), Urinary Tract Infection in Women (ED), Renal Colic (ED), How to Strain Your Urine (ED), Hydronephrosis (ED) Additional Instructions: Follow-up with urology, Dr. Thrasher is on-call today for urology group that we discussed at bedside that covers She Gomes, and Riky. Increase fluids at home, up to 1 gallon of water a day and not more than that. Finish antibiotic, take your next dose of antibiotic tomorrow. The antibiotic you had in the ER today last 24 hours. Pain medication may cause constipation, use thap-ypd-opskcrr stool softeners as needed. Alternate Tylenol and either Motrin, Advil, or ibuprofen every 4 hours to help with pain. If you are having severe pain, substitute a Hollywood tablet instead of Tylenol. Do not take Tylenol and Hollywood at the same time, you may actually take too much Tylenol at 1 setting or in 1 day. Maximum Tylenol dose of Tylenol is 3000 mg a day. Maximum dose of either Motrin, Advil, or ibuprofen is 2400 mg a day. Return back to the ER if intractable pain, nausea, vomiting, or any other acute complaints Referrals: Jamee Thrasher MD [Physician] - 1 week MARIXA ESPINOZA [Primary Care Provider] - 1 week
[2024-06-11 12:19] LABS: Basophils Absolute Auto 0.1 10^3/uL (0.0-0.1); Basophils Percent Auto 0.9 % (0.2-2.0); Eosinophils Percent Auto 0.2 % (0.9-7.0); Hemoglobin 14.1 g/dL (12.0-16.0); Immature Granulocytes Abs Auto 0.05 10^3/uL (0.00-0.03); Immature Granulocytes Pct Auto 0.5 % (0.0-0.5); Lymphocytes Absolute Auto 1.3 10^3/uL (1.2-3.8); Lymphocytes Percent Auto 12.4 % (20.5-60.0); Mean Corpuscular HGB Conc 33.6 g/dL (29.9-35.2); Mean Corpuscular Hemoglobin 32.4 pg (26.7-34.0); Mean Corpuscular Volume 96.6 fL (81.0-99.0); Mean Platelet Volume 9.4 fL (9.5-13.5); Monocytes Absolute Auto 0.5 10^3/uL (0.3-0.8); Monocytes Percent Auto 4.6 % (1.7-12.0); Neutrophils Absolute Auto 8.8 10^3/uL (1.4-6.5); Neutrophils Percent Auto 81.4 % (43.0-75.0); Platelet Count 243 10^3/uL (150-450); Red Blood Count 4.35 10^6/uL (4.20-5.40); Red Cell Distribution Width 12.6 % (11.0-15.0); White Blood Count 10.8 10^3/uL (4.0-11.0)
[2024-06-11] MEDS: KETOROLAC TROMETHAMINE 30 MG/ML VIAL 15 MG IVP (12:20)
[2024-06-11] MEDS: ONDANSETRON PF 4 MG/2 ML VIAL IV (12:20)
[2024-06-11] MEDS: MORPHINE SULFATE 2 MG/ML SYRINGE IV (12:21)
[2024-06-11 12:27] LABS: Alanine Aminotransferase 21 U/L (14-59); Albumin Globulin Ratio 1.4; Albumin Level 4.2 g/dL (3.4-5.0); Alkaline Phosphatase 79 U/L (46-116); Anion Gap 15.3; Aspartate Amino Transferase 13 U/L (15-37); BUN Creatinine Ratio 22.3; Bilirubin Total 0.7 mg/dL (0.2-1.0); Calcium 9.7 mg/dL (8.5-10.1); Carbon Dioxide 25.6 mmol/L (21.0-32.0); Chloride 107 mmol/L (98-107); Estimated GFR (African America >60 (>=60 mL/min/1.73m^2); Estimated GFR (Non-African Ame >60 (>=60 mL/min/1.73m^2); Glucose 149 mg/dL (74-106); Potassium 4.9 mmol/L (3.5-5.1); Sodium 143 mmol/L (136-145); Total Protein 7.2 g/dL (6.4-8.2)
[2024-06-11 12:43] LABS: Bilirubin Urine SMALL (NEGATIVE); Blood Urine LARGE (NEGATIVE); Clarity Urine CLOUDY (CLEAR); Color Urine DK. ORANGE (YELLOW); Glucose Urine UA NEGATIVE (NEGATIVE); Ketones Urine 15 mg/dL (NEGATIVE); Leukocyte Esterase Urine TRACE (NEGATIVE); Nitrite Urine NEGATIVE (NEGATIVE); Protein Urine 100 mg/dL (NEG/TRACE); Specific Gravity Urine >=1.030 (1.005-1.025); pH Urine 5.5 (5.0-9.0)
[2024-06-11 12:50] LABS: RBC Urine >100 #/HPF (0-2)
[2024-06-11 12:52] LABS: Bacteria Urine MODERATE #/HPF (NONE SEEN); Cast Seen? NONE SEEN #/LPF (NONE SEEN); Crystals Seen? None Seen #/HPF (None Seen); Mucus Urine NONE SEEN (NONE SEEN); Squamous Epithelial Cell Urine RARE #/LPF (NONE/RARE)
[2024-06-11 12:53] LABS: Urine Culture Indicated YES
[2024-06-11] MEDS: CEFTRIAXONE 1,000 MG in 0.9 % SODIUM CHLORIDE 50 ML 100 MG IV (13:09)
[2024-06-11 13:15] VITALS: BP 106/66; PULSE 88
== END 2024-06-11 14:10 | disposition home or self-care (01) ==
PROVIDERS: Emergency Provider Emergency Medicine
DX: N13.2 Hydronephrosis with renal and ureteral calculous obstruction (principal); N39.0 Urinary tract infection, site not specified; Z87.442 Personal history of urinary calculi
CPT/HCPCS: 36415; 74177; 80053; 81001; 83690; 85025; 87086; 96365; 96375; 99285; J0696; J1885; J2270; J2405; Q9967

== ENCOUNTER 2024-10-31 08:34 | Outpatient (OUT) | payer OTHER, SELFPAY ==
--- OUTSIDE RECORDS SUMMARY | 2024-10-31 08:48 | XMS_ITS | CCD ---
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 Crissy Landis Glucose [Mass/Vol] 128 mg/dL Normal [facility] Comment on above: Performed By: #### T SHRFT4, CMP, LIPID #### [facility] [address] [address] [address] Crissy Landis HbA1c (Bld) [Mass fraction] 6.1 % Normal 4.5-6.2 [facility] Comment on above: Performed By: #### T CADEN4, CMP, LIPID #### [facility] [address] [place] [address] Dr. Crissy Landis HEMOGRAM AND PLATELon 2022 Hematocrit (Bld) [Volume fraction] 42.8 % Normal 36.0-48.0 [facility] Comment on above: Performed By: #### H H #### [facility] [address] [place] [address] Dr. Crissy Landis Hemoglobin (Bld) [Mass/Vol] 14.4 g/dL Normal 12.0-16.0 [facility] Comment on above: Performed By: #### H H #### [facility] [address] [place] [address] Dr. Crissy Landis MCH (RBC) [Entitic mass] 31.7 pg Normal 26.7-34.0 [facility] Comment on above: Performed By: #### H H #### [facility] [address] [place] [address] Dr. Crissy Landis MCHC (RBC) [Mass/Vol] 33.6 g/dL Normal 29.9-35.2 [facility] Comment on above: Performed By: #### H H #### [facility] [address] [place] [address] Dr. Crissy Landis MCV (RBC) [Entitic vol] 94.3 fL Normal 81.0-99.0 [facility] Comment on above: Performed By: #### H H #### [facility] [address] [address] [address] Crissy Landis PLT 214 103/ul Normal 150-450 [facility] Comment on above: Performed By: #### H H #### [facility] [address] [address] [address] Crissy Landis RBC 4.54 106/ul Normal 4.20-5.40 [facility] Comment on above: Performed By: #### H H #### [facility] [address] [address] [address] Crissy Landis WBC 6.8 103/ul Normal 4.0-11.0 [facility] Comment on above: Performed By: #### H H #### [facility] [address] [place] [address] Dr. Crissy Landis LIPID PROFILEon 11-17-2022 CHOL-HDL RATIO NORM SEE BELOW Normal [facility] Comment on above: Result Comment: 3.3 - 4.4 LOW RISK 4.4 - 7.1 AVERAGE RISK 7.1 - 11.0 MODERATE RISK >11.0 HIGH RISK Performed By: #### T SHRFT4, CMP, LIPID #### [facility] [address] [place] [address] Dr. Crissy Landis Cholesterol [Mass/Vol] 130 mg/dL Normal <=200 [facility] Comment on above: Performed By: #### T SHRFT4, CMP, LIPID #### [facility] [address] [place] [address] Dr. Crissy Landis Cholesterol in HDL [Mass/Vol] 53 mg/dL Normal 40-60 [facility] Comment on above: Performed By: #### T SHRFT4, CMP, LIPID #### [facility] [address] [place] [address] Dr. Crissy Landis Cholesterol in LDL [Mass/Vol] 56.6 mg/dL Normal [facility] Comment on above: Performed By: #### T SHRFT4, CMP, LIPID #### [facility] [address] [address] [address] Crissy Landis Cholesterol.total/Cho lesterol in HDL [Mass ratio] 2.5 {ratio} Normal [facility] Comment on above: Performed By: #### T CADEN4, CMP, LIPID #### [facility] [address] [address] [address] Crissy Landis HDL NORMAL > or = 60 mg/dl - LO W CARDIOVASCULAR RISK <40 mg/dl - HIGH CARDIOVASCULAR RISK Normal [facility] Comment on above: Performed By: #### T CADEN4, CMP, LIPID #### [facility] [address] [address] [address] Crissy Landis LDL CALC NORMAL SEE BELOW Normal [facility] Comment on above: Result Comment: <100 mg/dl OPTIMAL 100 - 129 mg/dl NEAR OR ABOVE OPTIMAL 130 - 159 mg/dl BORDERLINE HIGH 160 - 189 mg/dl HIGH >190 mg/dl VERY HIGH Performed By: #### T CADEN4, CMP, LIPID #### [facility] [address] [address] [address] Crissy Landis Triglyceride [Mass/Vol] 102 mg/dL Normal <=150 [facility] Comment on above: Performed By: #### T CADEN4, CMP, LIPID #### [facility] [address] [address] [address] Crissy Landis VLDL CALC 20.4 mg/dL Normal [facility] Comment on above: Performed By: #### T CADEN4, CMP, LIPID #### [facility] [address] [address] [address] Crissy Landis MG MAMM SCREEN 3D JUSTO CADon 11-17-2022 MG MAMM SCREEN 3D JUSTO CAD Patient: NAVA BARLOW Exam Date: 11/17/2022 : 1965 Gender:F Ordering : MARIXA ESPINOZA Admission #: [id number] Family : Order #: [id number] CLICK HERE TO VIEW EXAM RADIOLOGY REPORT [...] breast cancer at age 66. LOCATION: [facility] BREAST COMPOSITION: Heterogeneously dense,which may obscure [...] Terrazas MD on 11/17/2022 at 13:50 Normal [facility] PROF 14(COMP METB)on 023 Albumin [Mass/Vol] 4.0 g/dL Normal 3.4-5.0 [facility] Comment on above: Performed By: #### T SHRFT4, CMP, LIPID #### [facility] [address] [address] [address] Crissy Landis Albumin/Globulin [Mass ratio] 1.2 {ratio} Normal [facility] Comment on above: Performed By: #### T SHRFT4, CMP, LIPID #### [facility] [address] [address] [address] Crissy Landis ALP [Catalytic activity/Vol] 83 U/L Normal 46-116 [facility] Comment on above: Performed By: #### T SHRFT4, CMP, LIPID #### [facility] [address] [place], [place] [address] Dr. Crissy Landis ALT [Catalytic activity/Vol] 39 U/L Normal 14-59 [facility] Comment on above: Performed By: #### T SHRFT4, CMP, LIPID #### [facility] [address] [place], [place] [address] Dr. Crissy Landis Anion gap [Moles/Vol] 13.8 mmol/L Normal [facility] Comment on above: Performed By: #### T SHRFT4, CMP, LIPID #### [facility] [address] [address] [address] Crissy Landis AST [Catalytic activity/Vol] 17 U/L Normal 15-37 [facility] Comment on above: Performed By: #### T SHRFT4, CMP, LIPID #### [facility] [address] [address] [address] Crissy Landis Bilirubin [Mass/Vol] 0.9 mg/dL Normal 0.2-1.0 [facility] Comment on above: Performed By: #### T SHRFT4, CMP, LIPID #### [facility] [address] [place] [address] Dr. Crissy Landis Calcium [Mass/Vol] 9.2 mg/dL Normal 8.5-10.1 [facility] Comment on above: Performed By: #### T SHRFT4, CMP, LIPID #### [facility] [address] [address] [address] Crissy Landis Chloride [Moles/Vol] 105 mmol/L Normal 98-107 [facility] Comment on above: Performed By: #### T SHRFT4, CMP, LIPID #### [facility] [address] [address] [address] Crissy Landis CO2 [Moles/Vol] 27.0 mmol/L Normal 21.0-32.0 [facility] Comment on above: Performed By: #### T SHRFT4, CMP, LIPID #### [facility] [address] [place] [address] Dr. Crissy Landis Creatinine [Mass/Vol] 0.85 mg/dL Normal 0.55-1.02 [facility] Comment on above: Performed By: #### T SHRFT4, CMP, LIPID #### [facility] [address] [place] [address] Dr. Crissy Landis EGFR-AF SRI LANKAN >60 Normal >=60 [facility] Comment on above: Performed By: #### T SHRFT4, CMP, LIPID #### [facility] [address] [address] [address] Crissy Landis EGFR-NON AF SRI LANKAN >60 Normal >=60 [facility] Comment on above: Performed By: #### T SHRFT4, CMP, LIPID #### [facility] [address] [address] [address] Crissy Landis Globulin (S) [Mass/Vol] 3.4 g/dL Normal [facility] Comment on above: Performed By: #### T SHRFT4, CMP, LIPID #### [facility] [address] [place] [address] Dr. Crissy Landis Glucose [Mass/Vol] 97 mg/dL Normal 74-106 [facility] Comment on above: Performed By: #### T SHRFT4, CMP, LIPID #### [facility] [address] [place] [address] Dr. Crissy Landis Potassium [Moles/Vol] 3.8 mmol/L Normal 3.5-5.1 [facility] Comment on above: Performed By: #### T SHRFT4, CMP, LIPID #### [facility] [address] [place] [address] Dr. Crissy Landis Protein [Mass/Vol] 7.4 g/dL Normal 6.4-8.2 [facility] Comment on above: Performed By: #### T SHRFT4, CMP, LIPID #### [facility] [address] [place] [address] Dr. Crissy Landis Sodium [Moles/Vol] 142 mmol/L Normal 136-145 [facility] Comment on above: Performed By: #### T SHRFT4, CMP, LIPID #### [facility] [address] [place] [address] Dr. Crissy Landis Urea nitrogen [Mass/Vol] 14.0 mg/dL Normal 7.0-18.0 [facility] Comment on above: Performed By: #### T SHRFT4, CMP, LIPID #### [facility] [address] [place] [address] Dr. Crissy Landis Urea nitrogen/Creatinine [Mass ratio] 16.5 mg/mg Normal [facility] Comment on above: Performed By: #### T SHRFT4, CMP, LIPID #### [facility] [address] [place] [address] Dr. Crissy Landis TSH W/ REFLEX TO FT4on 11-17 TSH 1.597 uIU/mL Normal 0.358-3.740 [facility] Comment on above: Performed By: #### T SHRFT4, CMP, LIPID #### [facility] [address] [place] [address] Dr. Crissy Landis CBC AUTO DIFFon 09-12-2022 BASO # 0.1 103/ul Normal 0.0-0.1 [facility] Comment on above: Performed By: #### C BC #### [facility] [address] [place] [address] Dr. Crissy Landis Basophils/100 WBC (Bld) 0.4 % Normal 0.2-2.0 [facility] Comment on above: Performed By: #### C BC #### [facility] [address] [place] [address] Dr. Crissy Landis EO # 0.0 103/ul Normal 0.0-0.7 [facility] Comment on above: Performed By: #### C BC #### [facility] [address] [place] [address] Dr. Crissy Landis Eosinophils/100 WBC (Bld) 0.2 % Critically low 0.9-7.0 [facility] Comment on above: Performed By: #### C BC #### [facility] [address] [place] [address] Dr. Crissy Landis Erythrocyte distribution width (RBC) [Ratio] 12.7 % Normal 11.0-15.0 [facility] Comment on above: Performed By: #### C BC #### [facility] [address] [place] [address] Dr. Crissy Landis Hematocrit (Bld) [Volume fraction] 42.8 % Normal 36.0-48.0 [facility] Comment on above: Performed By: #### C BC #### [facility] [address] [place] [address] Dr. Crissy Landis Hemoglobin (Bld) [Mass/Vol] 14.6 g/dL Normal 12.0-16.0 [facility] Comment on above: Performed By: #### C BC #### [facility] [address] [place] [address] Dr. Crissy Landis IG # 0.05 10e3/ul Critically high 0.00-0.03 [facility] Comment on above: Performed By: #### C BC #### [facility] [address] [place] [address] Dr. Crissy Landis IG % 0.4 % Normal 0.0-0.5 [facility] Comment on above: Performed By: #### C BC #### [facility] [address] [place] [address] Dr. Crissy Landis LYMPH # 1.4 103/ul Normal 1.2-3.8 [facility] Comment on above: Performed By: #### C BC #### [facility] [address] [place] [address] Dr. Crissy Landis Lymphocytes/100 WBC (Bld) 10.8 % Critically low 20.5-60.0 [facility] Comment on above: Performed By: #### C BC #### [facility] [address] [place] [address] Dr. Crissy Landis MANUAL DIFF REQ NO Normal [facility] Comment on above: Performed By: #### C BC #### [facility] [address] [place] [address] Dr. Crissy Landis MCH (RBC) [Entitic mass] 31.5 pg Normal 26.7-34.0 [facility] Comment on above: Performed By: #### C BC #### [facility] [address] [place] [address] Dr. Crissy Landis MCHC (RBC) [Mass/Vol] 34.1 g/dL Normal 29.9-35.2 [facility] Comment on above: Performed By: #### C BC #### [facility] [address] [place] [address] Dr. Crissy Landis MCV (RBC) [Entitic vol] 92.4 fL Normal 81.0-99.0 [facility] Comment on above: Performed By: #### C BC #### [facility] [address] [place] [address] Dr. Crissy Landis MONO # 0.6 103/ul Normal 0.3-0.8 [facility] Comment on above: Performed By: #### C BC #### [facility] [address] [place] [address] Dr. Crissy Landis Monocytes/100 WBC (Bld) 4.3 % Normal 1.7-12.0 [facility] Comment on above: Performed By: #### C BC #### [facility] [address] [place] [address] Dr. Crissy Landis NEUT # 11.0 103/ul Critically high 1.4-6.5 [facility] Comment on above: Performed By: #### C BC #### [facility] [address] [place] [address] Dr. Crissy Landis Neutrophils/100 WBC (Bld) 83.9 % Critically high 43.0-75.0 [facility] Comment on above: Performed By: #### C BC #### [facility] [address] [place] [address] Dr. Crissy Landis Platelet mean volume (Bld) [Entitic vol] 9.0 fL Critically low 9.5-13.5 [facility] Comment on above: Performed By: #### C BC #### [facility] [address] [place] [address] Dr. Crissy Landis PLT 240 103/ul Normal 150-450 [facility] Comment on above: Performed By: #### C BC #### [facility] [address] [place] [address] Dr. Crissy Landis RBC 4.63 106/ul Normal 4.20-5.40 [facility] Comment on above: Performed By: #### C BC #### [facility] [address] [place] [address] Dr. Crissy Landis WBC 13.1 103/ul Critically high 4.0-11.0 [facility] Comment on above: Performed By: #### C BC #### [facility] [address] [address] [address] ABD/PELVIS WO CONon [...] TOD CUMMINS Date: 2022-09-12 13:10 Normal [facility] CULTURE URINEon 09-12-2022 CULTURE URINE Culture Observations : NO GROWTH. Normal [facility] Comment on above: Performed By: #### U RCX #### [facility] [address] [place] [address] Dr. Crissy Landis ER URINE PROFILEon 3 Bilirubin Ql (U) Negative Normal NEGATIVE [facility] Comment on above: Performed By: #### NICOLE SCALES #### [facility] [address] [place] [address] Dr. Crissy Landis Clarity (U) CLEAR Normal CLEAR [facility] Comment on above: Performed By: #### E NICOLE BENTLEY #### [facility] [address] [place] [address] Dr. Crissy Landis Color (U) YELLOW Normal YELLOW [facility] Comment on above: Performed By: #### E JOSR UMICRO #### [facility] [address] [place] [address] Dr. Crissy SMITH A micrscopic examination will be performed if indicated. Normal [facility] Comment on above: Performed By: #### E RUR, UMICRO #### [facility] [address] [place] [address] Dr. Crissy Landis Glucose Ql (U) Negative Normal NEGATIVE [facility] Comment on above: Performed By: #### E RUR, UMICRO #### [facility] [address] [place] [address] Dr. Crissy Landis Hemoglobin Ql (U) LARGE Abnormal NEGATIVE [facility] Comment on above: Performed By: #### E RUR, UMICRO #### [facility] [address] [place] [address] Dr. Crissy Landis Ketones Ql (U) Negative Normal NEGATIVE [facility] Comment on above: Performed By: #### E RUR, UMICRO #### [facility] [address] [place] [address] Dr. Crissy Landis LEUKOCYTES TRACE Abnormal NEGATIVE [facility] Comment on above: Performed By: #### E RUR, UMICRO #### [facility] [address] [place] [address] Dr. Crissy Landis Nitrite Ql (U) Negative Normal NEGATIVE [facility] Comment on above: Performed By: #### E RUR, UMICRO #### [facility] [address] [place] [address] Dr. Crissy Landis pH (U) 5.0 [pH] Normal 5-9 [facility] Comment on above: Performed By: #### E RUR, UMICRO #### [facility] [address] [place] [address] Dr. Crissy Landis Protein (U) [Mass/Vol] 100 mg/dL Abnormal NEGATIVE/ TRACE [facility] Comment on above: Performed By: #### E RUR, UMICRO #### [facility] [address] [place] [address] Dr. Crissy Landis SPEC GRAVITY >=1.030 Abnormal 1.005-<=1.025 [facility] Comment on above: Performed By: #### THERESA SCALESRO #### [facility] [address] [place] [address] Dr. Crissy Landis UR MICRO IND INDICATED Normal [facility] Comment on above: Performed By: #### Jethro BENTLEY UMICRO #### [facility] [address] [place] [address] Dr. Crissy Landis Urobilinogen Qn (U) 0.2 {Pradip'U}/dL Normal 0.2 - 1. 0 [facility] Comment on above: Performed By: #### THERESA SACLESRO #### [facility] [address] [place] [address] Dr. Crissy Landis PROF CHEM 8 (BAS METB)on Anion gap [Moles/Vol] 13.1 mmol/L Normal [facility] Comment on above: Performed By: #### T CADEN4, CMP, LIPID #### [facility] [address] [place] [address] Dr. Crissy Landis Calcium [Mass/Vol] 9.5 mg/dL Normal 8.5-10.1 [facility] Comment on above: Performed By: #### T KIRSTENFT4, CMP, LIPID #### [facility] [address] [place] [address] Dr. Crissy Landis Chloride [Moles/Vol] 102 mmol/L Normal 98-107 [facility] Comment on above: Performed By: #### T KIRSTENFT4, CMP, LIPID #### [facility] [address] [place] [address] Dr. Crissy Landis CO2 [Moles/Vol] 27.9 mmol/L Normal 21.0-32.0 [facility] Comment on above: Performed By: #### T SHRFT4, CMP, LIPID #### [facility] [address] [address] [address] Crissy Landis Creatinine [Mass/Vol] 0.88 mg/dL Normal 0.55-1.02 [facility] Comment on above: Performed By: #### T CADEN4, CMP, LIPID #### [facility] [address] [address] [address] Crissy Landis EGFR-AF SRI LANKAN >60 Normal >=60 [facility] Comment on above: Performed By: #### T CADEN4, CMP, LIPID #### [facility] [address] [address] [address] Crissy Landis EGFR-NON AF SRI LANKAN >60 Normal >=60 [facility] Comment on above: Performed By: #### T CADEN4, CMP, LIPID #### [facility] [address] [place] [address] Dr. Crissy Landis Glucose [Mass/Vol] 160 mg/dL Critically high 74-106 [facility] Comment on above: Performed By: #### T CADEN4, CMP, LIPID #### [facility] [address] [address] [address] Crissy Landis Potassium [Moles/Vol] 4.0 mmol/L Normal 3.5-5.1 [facility] Comment on above: Performed By: #### T CADEN4, CMP, LIPID #### [facility] [address] [address] [address] Crissy Landis Sodium [Moles/Vol] 139 mmol/L Normal 136-145 [facility] Comment on above: Performed By: #### T CADEN4, CMP, LIPID #### [facility] [address] [address] [address] Crissy Landis Urea nitrogen [Mass/Vol] 19.0 mg/dL Critically high 7.0-18.0 [facility] Comment on above: Performed By: #### T KIRSTENFT4, CMP, LIPID #### [facility] [address] [address] [address] Crissy Landis Urea nitrogen/Creatinine [Mass ratio] 21.6 mg/mg Normal [facility] Comment on above: Performed By: #### T SHRFT4, CMP, LIPID #### [facility] [address] [place] [address] Dr. Crissy Landis URINE MICROSCOPIC ONLYon BACTERIA SMALL Abnormal NONE SEEN [facility] Comment on above: Performed By: #### Jethro BENTLEY, UMICRO #### [facility] [address] [place] [address] Dr. Crissy Landis Bacteria identified Cx Nom (U) INDICATED Normal [facility] Comment on above: Performed By: #### Jethro BENTLEY, UMICRO #### [facility] [address] [place] [address] Dr. Crissy Landis CAST NONE SEEN Normal NONE SEEN [facility] Comment on above: Performed By: #### Jethro BENTLEY UMICRO #### [facility] [address] [place] [address] Dr. Crissy Landis Crystals LM Nom (Urine sed) NONE SEEN Normal NONE SEEN [facility] Comment on above: Performed By: #### Jethro BENTLEY UMICRO #### [facility] [address] [place] [address] Dr. Crissy Lanids Epithelial cells LM Ql (Urine sed) RARE Normal NONE SEEN /RARE [facility] Comment on above: Performed By: #### Jethro BENTLEY UMICRO #### [facility] [address] [place] [address] Dr. Crissy Landis MUCOUS NONE SEEN Normal NONE SEEN [facility] Comment on above: Performed By: #### Jethro BENTLEY UMICRO #### [facility] [address] [place] [address] Dr. Crissy Landis RBC 20-50 Abnormal 0-2 [facility] Comment on above: Performed By: #### Jethro BENTLEY UMICRO #### [facility] [address] [place] [address] Dr. Crissy Landis WBC 2-5 Abnormal NONE SEEN [facility] Comment on above: Performed By: #### Jethro BENTLEY UMICRO #### [facility] [address] [place] [address] Dr. Crissy Landis Encounters Encounter Date Encounter Type Care Provider Facility Start: 11-17-2022 End: 11-18-2022 ambulatory MARIXA ESPINOZA Facility:[facility] Start: 09-12-2022 End: 09-12-2022 ambulatory NADEEM QUEZADA Facility:[facility] Start: 03-10-2022 ambulatory MARIXA ESPINOZA Facility:[facility] Payers Date Payer Category Payer Unknown [id number] [id number] [id number] 1965 Unknown [id number] [id number] [id number] 1965 Unknown [id number] 2.16.84 [id number] 1960 Self-pay 1960 Unknown [id number] Summary Purpose Family History No Family History Records Found Advance Directives No Advanced Directives Records Found Additional Source Comments INFORMATION SOURCE (unrecogn ized section and content) DATE CREATED AUTHOR 11/25/2022 [facility] FOR RECORDS PERTAINING TO PATIENTS WHO ARE [...] BE BASED ON THE PRIMARY CLINICAL RECORDS. [employer] provides no warranty or guarantee of the accuracy or completeness of information in this document.
[2024-10-31 09:15] LABS: Alanine Aminotransferase 41 U/L (14-59); Albumin Globulin Ratio 1.4; Albumin Level 3.8 g/dL (3.4-5.0); Alkaline Phosphatase 85 U/L (46-116); Anion Gap 10.3; Aspartate Amino Transferase 20 U/L (15-37); BUN Creatinine Ratio 21.3; Bilirubin Total 0.9 mg/dL (0.2-1.0); Calcium 9.1 mg/dL (8.5-10.1); Carbon Dioxide 29.5 mmol/L (21.0-32.0); Chloride 107 mmol/L (98-107); Chol HDL Ratio 2.4; Cholesterol 133 mg/dL (<=200); Estimated GFR (African America >60 (>=60 mL/min/1.73m^2); Estimated GFR (Non-African Ame >60 (>=60 mL/min/1.73m^2); Globulin 2.7 g/dL; Glucose 106 mg/dL (74-106); HDL Cholesterol 55 mg/dL (40-60); Potassium 3.8 mmol/L (3.5-5.1); Sodium 143 mmol/L (136-145); Total Protein 6.5 g/dL (6.4-8.2); Triglycerides 120 mg/dL (<=150)
== END 2024-10-31 08:35 | disposition home or self-care (01) ==
LOC: LAB 08:35
PROVIDERS: PCP Nurse Practitioner Family; Visit Provider Nurse Practitioner Family
DX: E78.5 Hyperlipidemia, unspecified (principal)
CPT/HCPCS: 36415; 80053; 80061

== ENCOUNTER 2024-11-28 09:39 | Outpatient (OUT) | payer OTHER, SELFPAY ==
--- NOTE | 2024-11-28 09:48 | MM_ITS ---
Patient Name: NAVA BARLOW MR#: [id number] : 1965 Exam Date: 11/28/2024 Ordering Doctor: [facility] REPORT PROCEDURE: MM TOMOSYNTHESIS SCREENING BI COMPARISON: MM TOMOSYNTHESIS SCREENING BI, 11/21/2023. MG MAMM SCREEN 3D JUSTO CAD, 11/17/2022. MG MAMM SCREEN 3D JUSTO CAD, 10/23/2021. MG MAMM JUSTO SCRN W CAD DIG, 11/02/2013. INDICATIONS: Screening Calculator Name NCI Breast Cancer Risk Assessment Tool 5 Year Breast Cancer Risk 2.70% Lifetime Breast Cancer Risk 13.60% Personal Breast Cancer No Personal Ovarian Cancer No Treatments None Family Cancers Mother with breast cancer at age 67. LOCATION: [facility] BREAST COMPOSITION: There are scattered areas of fibroglandular density. FINDINGS: DIAGNOSTIC CATEGORY 1--NEGATIVE. RIGHT BREAST: No significant suspicious finding. LEFT BREAST: No significant suspicious finding. RECOMMENDATIONS: ROUTINE MAMMOGRAM AND CLINICAL EVALUATION IN 12 MONTHS. PLEASE NOTE: A NORMAL MAMMOGRAM DOES NOT EXCLUDE THE POSSIBILITY OF BREAST CANCER. A CLINICALLY SUSPICIOUS PALPABLE LUMP SHOULD BE BIOPSIED. Dictated by: Chau Sanchez DO on 11/28/2024 at 15:14 Approved by: Chau Sanchez DO on 11/28/2024 at 15:15
== END 2024-11-28 09:40 | disposition home or self-care (01) ==
LOC: RAD 09:39
PROVIDERS: PCP Nurse Practitioner Family; Visit Provider Nurse Practitioner Family
DX: Z12.31 Encounter for screening mammogram for malignant neoplasm of breast (principal); M81.0 Age-related osteoporosis without current pathological fracture; Z80.3 Family history of malignant neoplasm of breast; M85.80 Other specified disorders of bone density and structure, unspecified site
CPT/HCPCS: 77063; 77067; 77080

== ENCOUNTER 2025-05-23 09:18 | Outpatient (OUT) | payer OTHER, SELFPAY ==
--- OUTSIDE RECORDS SUMMARY | 2024-06-28 04:45 | XMS_ITS ---
Author Organization [facility] Address [address] [place], [place] [id number] Care Team Providers Care Manager Hris Name Role Phone Christi Hampton Primary Care Provider Salma Wick REASON FOR VISIT prediabetes, hld Social History Sex Assigned At : Social History Observation Description Sex Assigned At Female Encounters Encounter Location Date Provider Diagnosis Main [address] [place], [place] [id number] 06/28/2024 Salma Wick Plan Of Treatment Next Appt Details Provider Name:Christi garnica, 11/11/2025 10:00:00 AM, [address] [place], [place], [id number], Progress Notes * Sarahy JONES LDOB: 5 (59 yo F)Acc No.[id number]:06/28/2024 Medical Note Patient: Noreen Sarahy VIEYRA :?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 Prediabetes, hld. * Medical History: Objective: * Vitals: Assessment: Plan: * Treatment: * Billing Information: * Visit Code: * Procedure Codes: * Electronic signature of GREGOR Patton on 05/23/2025 at 09:24 AM EST Sign off status: Pending * Provider: GREGOR Arango Date: 1 08/29/2023 Generated for Printing/Faxing/eTransmitting on:?05/23/2025 09:24 AM EST
--- OUTSIDE RECORDS SUMMARY | 2024-06-28 05:00 | XMS_ITS ---
Author Organization [facility] vices Address [address] [place] [id number] Care Team Providers Care Natural Sciences Manager Name Role Phone Christi Hampton Primary Care Provider Franklyn Whitaker [phone] REASON FOR VISIT 6 month Prediabetes, HLD Social History Sex Assigned At : Social History Observation Description Sex Assigned At Female Encounters Encounter Location Date Provider Diagnosis Main [address] [place] [id number] 06/28/2024 Franklyn Whitaker Plan Of Treatment Next Appt Details Provider Name:Christi garnica, 11/11/2025 10:00:00 AM, [address] [place], [place], [id number], Progress Notes * Sarahy JONES LDOB: 5 (59 yo F)Acc No.[id number]:06/28/2024 Medical Note Patient: Noreen Sarahy VIEYRA :?YOCASTA Valle-CDOB:1965???Age:58 Y ???Sex:FemaleDate:06/28/2024hone:[phone]:[address], [address], [place] [phone]:Christi Hampton Subjective: * Chief Complaints: * 1 . 6 month Prediabetes, HLD. * Medical History: Objective: * Vitals: Assessment: Plan: * Treatment: * Billing Information: * Visit Code: * Procedure Codes: * Electronic signature of YOCASTA Valle on 05/23/2025 at 09:23 AM ESTSign off status: Pending * Provider: Elvira Whitaker PA-C Date: 1 08/29/2023 Generated for Printing/Faxing/eTransmitting on:?05/23/2025 09:23 AM EST
--- OUTSIDE RECORDS SUMMARY | 2024-06-28 05:30 | XMS_ITS ---
Author Organization [facility] vices Address [address], [place] [id number] Care Team Providers Care Fundraising Specialist Name Role Phone Christi Hampton Primary Care Provider [phone] Salma Wick REASON FOR VISIT prediabetes, hld Social History Sex Assigned At : Social History Observation Description Sex Assigned At Female Encounters Encounter Location Date Provider Diagnosis Main [address] [place], [place] [id number] 06/28/2024 Salma Wick Plan Of Treatment Next Appt Details Provider Name:Christi garnica, 11/11/2025 10:00:00 AM, [address] [place], [place], [id number], Progress Notes * Sarahy JONES LDOB: 5 (59 yo F)Acc No.[id number]:06/28/2024 Medical Note Patient: Noreen Sarahy VIEYRA :?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 Prediabetes, hld. * Medical History: Objective: * Vitals: Assessment: Plan: * Treatment: * Billing Information: * Visit Code: * Procedure Codes: * Electronic signature of GREGOR Patton on 05/23/2025 at 09:23 AM EST Sign off status: Pending * Provider: GREGOR Arango Date: 1 08/29/2023 Generated for Printing/Faxing/eTransmitting on:?05/23/2025 09:23 AM EST
--- OUTSIDE RECORDS SUMMARY | 2024-10-01 05:30 | XMS_ITS ---
Author Organization [facility] vices Address [address], [place] [id number] Care Team Providers Care Sprinkler Fitter Name Role Phone Christi Hampton Primary Care Provider [phone] Salma Wick REASON FOR VISIT Prediabetes, HLD Social History Sex Assigned At : Social History Observation Description Sex Assigned At Female Encounters Encounter Location Date Provider Diagnosis Main [address] [place], [place] [id number] 10/01/2024 Salma Wick Plan Of Treatment Next Appt Details Provider Name:Christi garnica, 11/11/2025 10:00:00 AM, [address] [place], [place], [id number], Progress Notes * Sarahy JONES LDOB: 5 (59 yo F)Acc No.[id number]:10/01/2024 Medical Note Patient: Noreen Sarahy VIEYRA :?Salma Wick NP-CDOB:1965???Age:59 Y???Sex:FemaleDate:10/01/2024Phone:[phone]:[address] [place] [address], [address], [place] [phone]:Christi Hampton Subjective: * Chief Complaints: * 1 . Prediabetes, HLD. * Medical History: Objective: * Vitals: Assessment: Plan: * Treatment: * Billing Information: * Visit Code: * Procedure Codes: * Electronic signature of GREGOR Patton on 05/23/2025 at 09:22 AM EST Sign off status: Pending * Provider: GREGOR Arango Date: 0 10/01/2024 Generated for Printing/Faxing/eTransmitting on:?05/23/2025 09:22 AM EST
--- OUTSIDE RECORDS SUMMARY | 2025-04-29 07:45 | XMS_ITS ---
Author Organization [facility] vices Address [address] [place], [place] [id number] Care Team Providers Care Reception Interviewer Name Role Phone Christi Hampton Primary Care Provider [phone] Salma Wick [phone] REASON FOR VISIT wellness Social History Sex Assigned At : Social History Observation Description Sex Assigned At Female Encounters Encounter Location Date Provider Diagnosis [place] [address] [id number] 04/29/2025 Salma Wick Plan Of Treatment Next Appt Details Provider Name:Christi garnica, 11/11/2025 10:00:00 AM, [address] [place], [place], [id number], Progress Notes * Sarahy JONES LDOB: 5 (59 yo F)Acc No.[id number]:04/29/2025 Medical Note Patient: Noreen Sarahy VIEYRA :?Salma Wick NP-CDOB:1965???Age:59 Y???Sex:FemaleDate:04/29/2025Phone:[phone]:[address] [place] [address] [address], [address], [place] [id number]:Christi Perdomoman Subjective: * Chief Complaints: * 1 . Wellness. * Medical History: Objective: * Vitals: Assessment: Plan: * Treatment: * Billing Information: * Visit Code: * Procedure Codes: * Electronic signature of GREGOR Patton on 05/23/2025 at 09:24 AM EST Sign off status: Pending * Provider: GREGOR Arango Date: Generated for Printing/Faxing/eTransmitting on:?05/23/2025 09:24 AM EST
--- OUTSIDE RECORDS SUMMARY | 2025-05-02 07:45 | XMS_ITS ---
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 Role Phone Christi Hampton Primary Care Provider Salma Wick [phone] REASON FOR VISIT wellness Social History Sex Assigned At : Social History Observation Description Sex Assigned At Female Encounters Encounter Location Date Provider Diagnosis [address] [id number] 05/02/2025 Salma Wick Plan Of Treatment Next Appt Details Provider Name:Christi garnica, 11/11/2025 10:00:00 AM, [address], [place], [id number], Progress Notes * Sarahy JONES LDOB: 5 (59 yo F)Acc No.[id number]:05/02/2025 Medical Note Patient: Noreen Sarahy VIEYRA :?Salma Wick NP-CDOB:1965???Age:59 Y???Sex:FemaleDate:05/02/2025Phone:[phone]:[address] [place] [address], [address], [place] [id number]:Christi Perdomoman Subjective: * Chief Complaints: * 1 . Wellness. * Medical History: Objective: * Vitals: Assessment: Plan: * Treatment: * Billing Information: * Visit Code: * Procedure Codes: * Electronic signature of GREGOR Patton on 05/23/2025 at 09:22 AM EST Sign off status: Pending * Provider: GREGOR Arango Date: Generated for Printing/Faxing/eTransmitting on:?05/23/2025 09:22 AM EST
--- OUTSIDE RECORDS SUMMARY | 2025-05-02 07:45 | XMS_ITS ---
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 Name Role Phone Christi Hampton Primary Care Provider Salma Wick REASON FOR VISIT Wellness Social History Sex Assigned At : Social History Observation Description Sex Assigned At Female Encounters Encounter Location Date Provider Diagnosis [address], [place] [id number] 05/02/2025 Salma Wick Plan Of Treatment Next Appt Details Provider Name:Christi garnica, 11/11/2025 10:00:00 AM, [address] [place], [place], [id number], Progress Notes * Sarahy JONES LDOB: 5 (59 yo F)Acc No.[id number]:05/02/2025 Medical Note Patient: Noreen Sarahy VIEYRA :?Salma Wick NP-CDOB:1965???Age:59 Y???Sex:FemaleDate:05/02/2025Phone:[phone]:[address] [place] [address], [address], [place] [id number]:Christi Perdomoman Subjective: * Chief Complaints: * 1 . Wellness. * Medical History: Objective: * Vitals: Assessment: Plan: * Treatment: * Billing Information: * Visit Code: * Procedure Codes: * Electronic signature of GREGOR Patton on 05/23/2025 at 09:23 AM EST Sign off status: Pending * Provider: GREGOR Arango Date: Generated for Printing/Faxing/eTransmitting on:?05/23/2025 09:23 AM EST
--- OUTSIDE RECORDS SUMMARY | 2025-05-13 04:30 | XMS_ITS ---
Author Organization [facility] vices Address [address] [place] [id number] Care Team Providers Care Soil Conservationist Name Role Phone Christi Hampton Primary Care Provider [phone] Allergies No Known Allergies REASON FOR VISIT Wellness Medications Medication SIG (Take, Route, Frequency, Duration) Notes Start Date End Date Status Blood Glucose Test Strip - 1 test strip once daily when needed; Duration: 90 days please change to brand covered by insurance 12/08/2023 ActiveBlood Glucose Meter -1 meter check once daily when neededplease change to brand covered by wwlfrvuqu74/23/2024ctiveAlendronate Sodium 70 MG1 tablet 30 minutes before the first food, beverage or medicine of the day with plain water Orally once a week; Duration: 84 daysActiveAtorvastatin Calcium 40 MG1 tablet Orally Once a day; Duration: 90 daysActive Social History Sex Assigned At : Social History Observation Description Sex Assigned At Female Problems Problem Type SNOMED Code ICD Code Onset Dates Problem Status W/U Status Risk Notes Problem Hyperlipidemia (41161751) Hyperlipidemia (E78.5) Activeconfirmed Vital Signs Temperature 98.4 degrees Fahrenheit 05/13/20 25 Weight 130.9 lbs 05/13/2025 Height 62.00 in 05/13/2025 BMI 23.94 kg/m2 05/13/2025 Blood pressure systolic 121 mm Hg 05/13/20 25 Blood pressure diastolic 71 mm Hg 025 Heart Rate 92 /min 05/13/2025 Respiratory Rate 16 /min 05/13/2025 Oximetry 96 % 05/13/2025 Weight-kg 59.38 kg 05/13/2025 Height-cm 157.48 cm 05/13/2025 Melissa Alcaraz 05/13/2025 09:27:31 AM EDT > Encounters Encounter Location Date Provider Diagnosis East [address] [place] [id number] 05/13/2025 Christialfonzo Hampton Encounter for well ness examination in adult Z00.00 ; Hyperlipidemia E78.5 ; Prediabetes R73.03 ; Dietary counseling Z71.3 ; Exercise counseling Z71.82 and Screening for thyroid disorder Z13.29 Assessments Encounter Date Diagnosis (ICD Code) Assessment Notes Treatment Notes Treatment Clinical Notes Section Notes 05/13/2025 Encounter for wellness examinati on in adult (ICD-10 - Z00.00) Pt is here for wellness today. Overall health is okay. I advised to get baseline tests and pt is agreeable for that. I advised regular exercise and eating a balanced diet with focus on eating less fried and fatty foods and eating more fresh fruits and vegetable in an attempt to achieve and maintain a healthy BMI and PVU We discussed the importance of vaccination including covid shots and yearly flu shots and all questions were answered in detail today. Will call with lab results 05/13/2025Hyperlipidemia (ICD-10 - E78.5) HLD Stable. Pt to continue current medications. Labs ordered Encouraged healthy diet and exercise, if able. F/U 6 month & PRN 05/13/2025Prediabetes (ICD-10 - R73.03) Pt has Prediabetes Discussed risk of getting diagnosed w/ diabetes if unable to make lifestyle changes and modify riskfactors Pt encouraged to reduce carbohydrate, sugar, pop intake, prioritize protein, fruits and vegetables,and water intake. Pt also encouraged to exercise if able to reduce their risk. Labs ordered F/U 6 months & PRN 05/13/2025Dietary counseling (ICD-10 - Z71.3)Encoruaged eating a healthy, balanced diet and increasing activity level by engaging in exercise atleast 30 min x atleast 5 days a week.05/13/2025Exercise counseling (ICD-10 - Z71.82)The patient was encouraged to increase exercise weekly to at least 3-4 times per week for 30-45 minutes for each session. Exercise may include but is not limited to walking, jogging, running, resistance training, water aerobics and strength training. Benefits of increasing exercise regimens may include healthier lifestyle, stronger bone health, diminished aches and pain, and better metabolism.05/13/2025Screening for thyroid disorder (ICD-10 - Z13.29) Plan Of Treatment Treatment Notes Assessment Notes Encounter for wellness examination in ad ult Pt is here for wellness today. Overall health is okay. I advised to get baseline tests and pt is agreeable for that. I advised regular exercise and eating a balanced diet with focus on eating less fried and fatty foods and eating more fresh fruits and vegetable in an attempt to achieve and maintain a healthy BMI and PVU We discussed the importance of vaccination including covid shots and yearly flu shots and all questions were answered in detail today. Will call with lab results Hyperlipidemia HLD Stable. Pt to continue current medications. Labs ordered Encouraged healthy diet and exercise, if able. F/U 6 month & PRN Prediabetes Pt has Prediabetes Discussed risk of getting diagnosed w/ diabetes if unable to make lifestyle changes and modify risk factors Pt encouraged to reduce carbohydrate, sugar, pop intake, prioritize protein, fruits and vegetables, and water intake. Pt also encouraged to exercise if able to reduce their risk. Labs ordered F/U 6 months & PRN Dietary counseling Encoruaged eating a healthy, balanced diet and increasing activity level by engaging in exercise atleast 30 min x atleast 5 days a week. Exercise counseling The patient was enco uraged to increase exercise weekly to at least 3-4 times per week for 30-45 minutes for each session. Exercise may include but is not limited to walking, jogging, running, resistance training, water aerobics and strength training. Benefits of increasing exercise regimens may include healthier lifestyle, stronger bone health, diminished aches and pain, and better metabolism. 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 A 59 year old patient is here today for wellness visit. Last wellness visit was : unknown Today patient denies any new complaints. Health has been good recently. Blood pressure today is: 1217/71 Diabetic screening: ordered Cholesterol screening: ordered Colon cancer screening: cologaurd negative december 2024 Cervical cancer screening: pap last year Breast cancer screening: Mammogram November 2024 Osteoporosis screening: Dexa 2024. Repeat in 1 year on medications for osteprosis Depression screening: Smoking status: quit 3 years ago Alcohol use: none Drug use including marijuana: none Dental screening: No teeth does not use her dentures Vision screening: goes every year in Aug. Diet: Patient gets plenty of protein. Does eat fruits and vegetables. Patient states she drinks alot of water a day. Only caffeine is sweet tea. No pop Vaccination: Declines Exercise: Patient does not exercise. Only walking is to the mailbox. Denies issues or concerns. ?Patient is here for her wellness exam. * ROS: ???Negative except mentioned above in the HPI. 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 control?bilateral tubal ligation.?Last pap smear date?10/25/2018- PAP neg, HPV neg.?Last mammogram date?11/2023- normal.? * OB History: ??? History:?Total pregnancies:?5 ?Full-term pregnancies:?4 ?Pre-term pregnancies?1 ?Total living children:?5 * Surgical History: r ight arm surgery Section - 1 Tubal Ligation KIDNEY STONES 2023 * Hospitalization/Major Diagno stic Procedure: D enies Past Hospitalization * Family History: F ather: . M other: . P aternal Grand Father: . P aternal Grand Mother: . M aternal Grand Father: . M aternal Grand Mother: .?Brother: alive. S ister: alive. * Medications: T akingBlood Glucose Meter - Kit 1 meter check once daily when needed , Notes to Pharmacist: please change to brand covered by insuranceBlood Glucose Test Strip - Strip 1 test strip once daily when needed , Notes to Pharmacist: please change to brand covered by insuranceAtorvastatin Calcium 40 MG Tablet 1 tablet Orally Once a day Alendronate Sodium 70 MG Tablet 1 tablet 30 minutes before the first food, beverage or medicine of the day with plain water Orally once a week Medication List reviewed and reconciled with the patientTaking Blood Glucose Meter - Kit 1 meter check once daily when needed , Notes to Pharmacist: please change to brand covered by insuranceTaking Blood Glucose Test Strip - Strip 1 test strip once daily when needed , Notes to Pharmacist: please change to brand covered by insuranceTaking Atorvastatin Calcium 40 MG Tablet 1 tablet Orally Once a day Taking Alendronate Sodium 70 MG Tablet 1 tablet 30 minutes before the first food, beverage or medicine of the day with plain water Orally once a week Medication List reviewed and reconciled with the patient * Allergies: N .K.D.A.no[Allergies Verified] Objective: * Vitals: T emp:98.4F, Wt:130.9lbs, Ht: 62.00 in, BMI:23.94Index, BP:121/71mm Hg, HR:92/min, RR:16/min, Pain scale:01-10, Oxygen sat %:96%, Wt-k.38 kg, Ht-cm: 157.48 cm, Body Surface Area: 1.61. Melissa Alcaraz 05/13/2025 09:27:31 AM EDT >. * Examination: ???CQM Exceptions: ?Currently taking Aspirin:?Aspirin Use:?No?General Examination: ?General appearance:?alert, pleasant, well-nourished and inno acute distress.?Head:?normocephalic, atraumatic.?Eyes:?pupils equal, round, reactive to light and accommodation. Wears glasses.?Ears:?auditory canal clear, tympanic membrane intact and clear bilaterally.?Nose:?nares patent , no lesions , sinuses nontender bilaterally.?Oral cavity:?tongue is midline , palate normal , mucosa moist, edentulous.?Skin:?skin is warm and dry, with no rashes, good skin turgor and normal hair distribution.?Heart:?regular rate and rhythm without murmurs, gallops, clicks or rubs.?Lungs:?Diminished to auscultation bilaterally, no rales, rhonchi or wheezes.?Extremities:?normal extremity with no clubbing, cyanosis or edema , full range of motion.?Psych:?alert and oriented x 3 , cooperative with exam , maintains good eye contact , normal affect / mood , speech is clear and coherent.??? Assessment: * Assessment: 1.?Encounter for wellness examination in adult - Z00.00 (Primary)???2.?Hype rlipidemia - E78.5???3.?Prediabetes - R73.03???4.?Dietary counseling - Z71.3???5.?Exercise counseling - Z71.82???6.?Screening for thyroid disorder - Z13.29??? Plan: * Treatment: Notes: Pt is here for wellness today. Overall health is okay. I advised to get baseline tests and pt is agreeable for that. I advised regular exercise and eating a balanced diet with focus on eating less fried and fatty foods and eating more fresh fruits and vegetable in an attempt to achieve and maintain a healthy BMI and PVU We discussed the importance of vaccination including covid shots and yearly flu shots and all questions were answered in detail today. Will call with lab results??2.?Hyperlipidemia?LAB: LIPID PANEL WITH REFLEX TO DIRECT LDL ?LAB: COMPREHENSIVE METABOLIC PANEL WITH GFR Notes: HLD Stable. Pt to continue current medications. Labs ordered Encouraged healthy diet and exercise, if able. F/U 6 month & PRN ??3.?Prediabetes?LAB: HEMOGLOBIN A1C Notes: Pt has Prediabetes Discussed risk of getting diagnosed w/ diabetes if unable to make lifestyle changes and modify riskfactors Pt encouraged to reduce carbohydrate, sugar, pop intake, prioritize protein, fruits and vegetables,and water intake. Pt also encouraged to exercise if able to reduce their risk. Labs ordered F/U 6 months & PRN ??4.?Dietary counseling? Notes: Encoruaged eating a healthy, balanced diet and increasing activity level by engaging in exercise atleast 30 min x atleast 5 days a week. ??5.?Exercise counseling? Notes: The patient was encouraged to increase exercise weekly to at least 3-4 times per week for 30-45 minutes for each session. Exercise may include but is not limited to walking, jogging, running, resistance training, water aerobics and strength training. Benefits of increasing exercise regimens may include healthier lifestyle, stronger bone health, diminished aches and pain, and better metabolism. ??6.?Screening for thyroid disorder?LAB: TSH + FREE T4 PROFILE * Procedure Codes: 1 036F TOBACCO NON-TSPZ4246C HTN DIAST BP < 037243P HTN SYST BP < 130 * Preventive Medicine: ??Counseling:?Care goal follow-up plan:?Nutrition/Dietary Counseling provided Yes ?BMI management provided?Yes * Follow Up: 6 Months (Reason: prediabetes, hld) Care Plan: * Problems: * Billing Information: * Visit Code: 62533 [facility] Compre Prev Med Ree/M Est Pt 40-64. * Procedure Codes: 1036F TOBACCO NON-USER. 3078F HTN DIAST BP < 80. 3074F HTN SYST BP < 130. * Sign off status: Completed true * Provider: Michael Hampton APRN, FNP-[place] Date: Generated for Printing/Faxing/eTransmitting on:?05/23/2025 09:23 AM EST History and Physical Notes * HPI (History of Present Illness) CategorySub-CategoryDetailNotesCategory NotesInterim HistoryPatient is here for her wellness exam. Examination CategorySub-CategoryDetailNotesCategory NotesGeneral ExaminationGeneral appearance:alert, pleasant, well-nourished and in no acute distressHead: normocephalic, atraumaticEyes:pupils equal, round, reactive to light and accommodation. Wears glassesEars:auditory canal clear, tympanic membrane intact and clear bilaterallyNose:nares patent , no lesions , sinuses nontender bilaterallyHeart:regular rate and rhythm without murmurs, gallops, clicks or rubsLungs:Diminished to auscultation bilaterally, no rales, rhonchi or wheezes Skin:skin is warm and dry, with no rashes, good skin turgor and normal hair distributionExtremities:normal extremity with no clubbing, cyanosis or edema , full range of motionPsych:alert and oriented x 3 , cooperative with exam , maintains good eye contact , normal affect / mood , speech is clear and coherent Oral cavity:tongue is midline , palate normal , mucosa moist, edentulousCQM ExceptionsCurrently taking Aspirin:Aspirin Use:: No
--- OUTSIDE RECORDS SUMMARY | 2025-05-23 09:23 | XMS_ITS | CCD ---
Author Organization [facility] Inform ion Partnership [facility] Care Team Providers Care Solution Professional Name Role Phone NADEEM QUEZADA Attending Unavailable NADEEM QUEZADA Consulting Unavailable NADEEM QUEZADA Admitting Unavailable ANGLIM, MARIXA Primary Care Unavailable TOD CUMMINS Consulting Unavailable ANGLIM, MARIXA Primary Care Unavailable ANGLIM, MARIXA Admitting Unavailable ANGLIM, MARIXA Attending Unavailable ANGLIM, MARIXA Attending Unavailable DR LONNIE TERRAZAS V Consulting Unavailable ANGLIM, MARIXA Primary Care Unavailable ANGLIM, MARIXA Admitting Unavailable ANGLIM, MARIXA Consulting Unavailable Problems Problem ClassificationProblemDateDocumented DateEpisodic/ChronicAbdominal pain (4 sources)Unspecified abdominal pain; Translations: [UNSPECIFIED ABDOMINAL PAIN]Onset: 51-82-9513NmctrxkjGltralrl of urinary tract (2 sources)Calculus of kidney; Translations: [Personal history of urinary calculi]Onset: 24-30-5719WbzgbemdQpqaogpv mellitus without complication (4 sources)Other abnormal glucose; Translations: [OTHER ABNORMAL GLUCOSE]Onset: 55-10-0145WvkkmtfuVwfimphha of lipid metabolism (2 sources)Hyperlipidemia, unspecified; Translations: [Pure hypercholesterolemia, unspecified]Onset: 65-24-0583KsycdkoJyleh screening for suspected conditions (not mental disorders or infectious disease) (2 sources)Encounter for screening for other suspected endocrine disorder; Translations: [Encounter for screening mammogram for malignant neoplasm of breast]Onset: 09-80-2567PllpiioxVuwgvqpy codes; unclassified (1 source)Family history of malignant neoplasm of breast; Translations: [FAMILY HX MALIG NEOPLASM OF BREAST]Onset: 84-84-5331HzkqvljfEuefeytvj and history of mental health and substance abuse codes (1 source)Personal history of nicotine dependence; Translations: [PERSONAL HISTORY OF NICOTINE DEPEND]Onset: 44-36-9373Wrfshnmm Results Test NameValueInterpretationReference RangeFacilityGLYCOHEMOGLOBIN A1Con 70-24-1168ETS RECOMMENDATIONSEE BELOWMercy Health Defiance HospitalComment on above:Result Comment: ADA RECOMMENDED LIMIT 4.0 - 6.0 ADA THERAPEUTIC TARGET < 7.0 ACTION SUGGESTED > 7.0Performed By: #### TSHRFT4, CMP, LIPID #### [facility] [address] [address] [address] Crissy LandisGlucose [Mass/Vol]128 mg/dLNoUniversity Hospitals Geauga Medical CenterComment on above:Performed By: #### TSHRFT4, CMP, LIPID #### [facility] [address] [place] [address] Dr. Crissy LandisHbA1c (Bld) [Mass fraction]6.1 %Normal4.5-6.2The [facility] CenterComment on above:Performed By: #### TSHRFT4, CMP, LIPID #### [facility] [address] [place] [address] Dr. Crissy LandisHEMOGRAM AND PLATELon 82-92-7435Qkaufdudml (Bld) [Volume fraction]42.8 %Oqwwhz33.0-48.0The [facility] CenterComascension providence hospital on above:Performed By: #### HH #### [facility] [address] [place] [address] Dr. Crissy LandisHemoglobin (Bld) [Mass/Vol]14.4 g/bMSmfoii73.0-16.0The [facility] CenterComment on above:Performed By: #### HH #### [facility] [address] [place] [address] Dr. Crissy SyH (RBC) [Entitic mass]31.7 kvEyrmsa32.7-34.0The [facility] Centerment on above:Performed By: #### HH #### [facility] [address] [place] [address] Dr. Crissy SyHC (RBC) [Mass/Vol]33.6 g/iQVxvshw28.9-35.2St. [facility] HospitalComment on above:Performed By: #### HH #### [facility] [address] [place] [address] Dr. Crissy SyV (RBC) [Entitic vol]94.3 nUXedfhy60.0-99.0The [facility] CenterComment on above:Performed By: #### HH #### [facility] [address] [place] [address] Dr. Crissy JohnT214 103/yfZvhbsu336-211Vln [facility] CenterComment on above: Performed By: #### HH #### [facility] [address] [place] [address] Dr. Crissy LandisRBC4.54 106/ulNormal4.20-5.40The [facility] CenterComment on above:Performed By: #### HH #### [facility] [address] [place] [address] Dr. Crissy LandisWBC6.8 103/ulNormal4.0-11.0The [facility] CenterComment on above: Performed By: #### HH #### [facility] [address] [place] [address] Dr. Crissy CarrenoID PROFILEon 14-32-4984WWFO-HDL RATIO St. Charles HospitalComment on above:Result Comment: 3.3 - 4.4 LOW RISK 4.4 - 7.1 AVERAGE RISK 7.1 - 11.0 MODERATE RISK >11.0 HIGH RISKPerformed By: #### TSHRFT4, CMP, LIPID #### [facility] [address] [place] [address] Dr. Crissy LandisCholesterol [Mass/Vol]130 mg/dLNormal<=200[facility] Comment on above:Performed By: #### TSHRFT4, CMP, LIPID #### [facility] [address] [place] [address] Dr. Crissy LandisCholesterol in HDL [Mass/Vol]53 mg/bMVyccjy77-09Kir [facility] CenterComment on above:Performed By: #### TSHRFT4, CMP, LIPID #### [facility] [address] [address] [address] Crissy LandisCholesterol in LDL [Mass/Vol]56.6 mg/dLMercy Health Defiance HospitalComment on above:Performed By: #### TSHRFT4, CMP, LIPID #### [facility] [address] [address] [address] Crissy Atkins.total/Cholesterol in HDL [Mass ratio]2.5 {ratio} NormalSt. Charles HospitalComment on above:Performed By: #### TSHRFT4, CMP, LIPID #### [facility] [address] [address] [address] Crissy Aguilar NORMAL> or = 60 mg/dl - LOW CARDIOVASCULAR RISK <40 mg/dl - HIGH CARDIOVASCULAR RISKNoUniversity Hospitals Geauga Medical CenterComment on above:Performed By: #### TSHRFT4, CMP, LIPID #### [facility] [address] [address] [address] Crissy Perez CALC NORMALSEE BELOWNoUniversity Hospitals Geauga Medical CenterComment on above:Result Comment: <100 mg/dl OPTIMAL 100 - 129 mg/dl NEAR OR ABOVE OPTIMAL 130 - 159 mg/dl BORDERLINE HIGH 160 - 189 mg/dl HIGH >190 mg/dl VERY HIGH Performed By: #### TSHRFT4, CMP, LIPID #### [facility] [address] [address] [address] Crissy LandisTriglyceride [Mass/Vol]102 mg/dLNormal<=150[facility] Comment on above:Performed By: #### TSHRFT4, CMP, LIPID #### [facility] [address] [address] [address] Crissy LandisVLDL CALC20.4 mg/dLNoUniversity Hospitals Geauga Medical CenterComment on above: Performed By: #### TSHRFT4, CMP, LIPID #### [facility] [address] [address] [address] Crissy LandisMG MAMM SCREEN 3D JUSTO CADon 27-36-4016SU MAMM SCREEN 3D JUSTO CAD Patient: NAVA BARLOW Exam Date: 11/17/2022 : 1965 Gender:F Ordering : MARIXA ESPINOZA Admission #: [id number] Family : Order #: [id number] CLICK HERE TO VIEW EXAM RADIOLOGY REPORT [...] breast cancer at age 66. LOCATION: [facility] BREAST COMPOSITION: Heterogeneously dense,which may obscure small [...] by: Lonnie Terrazas MD on 11/17/2022 at 13:50NoUniversity Hospitals Geauga Medical CenterPROF 14(COMP METB)on 08-97-2405Xkdskou [Mass/Vol]4.0 g/dLNormal3.4-5.0The [facility] CenterComment on above:Performed By: #### TSHRFT4, CMP, LIPID #### [facility] [address] [address] [address] Crissy LandisAlbumin/Globulin [Mass ratio]1.2 {ratio}NormalThe [facility] Medical Centerment on above:Performed By: #### TSHRFT4, CMP, LIPID #### [facility] [address] [place], [place] [address] Dr. Crissy Bautista [Catalytic activity/Vol]83 U/MAvbayg04-905Bzl [facility] on above:Performed By: #### TSHRFT4, CMP, LIPID #### [facility] [address] [address] [address] Crissy Iglesias [Catalytic activity/Vol]39 U/YCbizsc19-92Jor [facility] CenterComment on above:Performed By: #### TSHRFT4, CMP, LIPID #### [facility] [address] [address] [address] Crissy Valenzuela gap [Moles/Vol]13.8 mmol/LNormalThe [facility] Comment on above:Performed By: #### TSHRFT4, CMP, LIPID #### [facility] [address] [place] [address] Dr. Crissy Bowers [Catalytic activity/Vol]17 U/PZvwprl07-71Yqs [facility] CenterComment on above:Performed By: #### TSHRFT4, CMP, LIPID #### [facility] [address] [place] [address] Dr. Crissy LandisBilirubin [Mass/Vol]0.9 mg/dLNormal0.2-1.0[facility] Comment on above:Performed By: #### TSHRFT4, CMP, LIPID #### [facility] [address] [place] [address] Dr. Crissy LandisCalcium [Mass/Vol]9.2 mg/dLNormal8.5-10.1[facility] Comment on above:Performed By: #### TSHRFT4, CMP, LIPID #### [facility] [address] [place] [address] Dr. Crissy LandisChloride [Moles/Vol]105 mmol/USebgnq37-665PvoSt. Charles Hospital Comment on above:Performed By: #### TSHRFT4, CMP, LIPID #### [facility] [address] [place] [address] Dr. Crissy LandisCO2 [Moles/Vol]27.0 mmol/IMfdumf71.0-32.0[facility] Comment on above:Performed By: #### TSHRFT4, CMP, LIPID #### [facility] [address] [place] [address] Dr. Yilan ChangCreatinine [Mass/Vol]0.85 mg/dLNormal0.55-1.02St. Charles HospitalComment on above:Performed By: #### TSHRFT4, CMP, LIPID #### [facility] [address] [address] [address] Crissy AmaroGFR-AF SAO TOMEAN>60Normal>=60The [facility] CenterComment on above:Performed By: #### TSHRFT4, CMP, LIPID #### [facility] [address] [address] [address] Crissy AmaroGFR-NON AF SAO TOMEAN>60Normal>=60The [facility] CenterComment on above:Performed By: #### TSHRFT4, CMP, LIPID #### [facility] [address] [place] [address] Dr. Crissy LandisGlobulin (S) [Mass/Vol]3.4 g/dLNormalThe [facility] CenterComment on above:Performed By: #### TSHRFT4, CMP, LIPID #### [facility] [address] [address] [address] Crissy LandisGlucose [Mass/Vol]97 mg/yIAzgcdy11-093OhnSt. Charles Hospital Comment on above:Performed By: #### TSHRFT4, CMP, LIPID #### [facility] [address] [address] [address] Crissy LandisPotassium [Moles/Vol]3.8 mmol/LNormal3.5-5.1[facility] Comment on above:Performed By: #### TSHRFT4, CMP, LIPID #### [facility] [address] [address] [address] Crissy LandisProtein [Mass/Vol]7.4 g/dLNormal6.4-8.2The [facility] Comment on above:Performed By: #### TSHRFT4, CMP, LIPID #### [facility] [address] [address] [address] Crissy LandisSodium [Moles/Vol]142 mmol/IRcwtcq396-013GgpSt. Charles Hospital Comment on above:Performed By: #### TSHRFT4, CMP, LIPID #### [facility] [address] [address] [address] Crissy Penn nitrogen [Mass/Vol]14.0 mg/dLNormal7.0-18.0The [facility] CenterComment on above:Performed By: #### TSHRFT4, CMP, LIPID #### [facility] [address] [place] [address] Dr. Crissy Penn nitrogen/Creatinine [Mass ratio]16.5 mg/mgNormalThe [facility] CenterComment on above:Performed By: #### TSHRFT4, CMP, LIPID #### [facility] [address] [place] [address] Dr. Crissy Pearce W/ REFLEX TO FT4on 19-11-3872VXA0.597 uIU/mLNormal0.358-3.740 The [facility] CenterComment on above:Performed By: #### TSHRFT4, CMP, LIPID #### [facility] [address] [place] [address] Dr. Crissy Rivera AUTO DIFFon 86-68-1974YHGY #0.1 103/ulNormal0.0-0.1The [facility] CenterComment on above:Performed By: #### CBC #### [facility] [address] [place] [address] Dr. Crissy LandisBasophils/100 WBC (Bld)0.4 %Normal0.2-2.0The [facility] Comment on above:Performed By: #### CBC #### [facility] [address] [place] [address] Dr. Crissy Chicas #0.0 103/ulNormal0.0-0.7The [facility] CenterComment on above: Performed By: #### CBC #### [facility] [address] [place] [address] Dr. Crissy Amaroosinophils/100 WBC (Bld)0.2 %Critically low0.9-7.0The [facility] CenterComment on above:Performed By: #### CBC #### [facility] [address] [place] [address] Dr. Crissy Amarorythrocyte distribution width (RBC) [Ratio]12.7 %Ysejnl81.0-15.0 The [facility] CenterComment on above:Performed By: #### CBC #### [facility] [address] [place] [address] Dr. Crissy LandisHematocrit (Bld) [Volume fraction]42.8 %Swudbn17.0-48.0The [facility] HospitalComment on above:Performed By: #### CBC #### [facility] [address] [place] [address] Dr. Crissy LandisHemoglobin (Bld) [Mass/Vol]14.6 g/eDIoelhu39.0-16.0St. [facility] HospitalComment on above:Performed By: #### CBC #### [facility] [address] [place] [address] Dr. Crissy Rose #0.05 10e3/ulCritically high0.00-0.03The [facility] Comment on above:Performed By: #### CBC #### [facility] [address] [place] [address] Dr. Crissy Rose %0.4 %Normal0.0-0.5The [facility] CenterComment on above: Performed By: #### CBC #### [facility] [address] [place] [address] Dr. Crissy CantrellH #1.4 103/ulNormal1.2-3.8The [facility] CenterComment on above:Performed By: #### CBC #### [facility] [address] [place] [address] Dr. Crissy Bobmphocytes/100 WBC (Bld)10.8 %Critically low20.5-60.0The [facility] CenterComment on above:Performed By: #### CBC #### [facility] [address] [place] [address] Dr. Crissy BarreraUAL DIFF REQNONormalThe Riky HospitalComment on above: Performed By: #### CBC #### [facility] [address] [address] [address] Crissy Sy (RBC) [Entitic mass]31.5 fqPcqjxt72.7-34.0The [facility] CenterComment on above:Performed By: #### CBC #### [facility] [address] [place] [address] Dr. Crissy Sy (RBC) [Mass/Vol]34.1 g/oJQxebjz23.9-35.2The [facility] CenterComment on above:Performed By: #### CBC #### [facility] [address] [place] [address] Dr. Crissy Sy (RBC) [Entitic vol]92.4 dDDatfba13.0-99.0The [facility] CenterComment on above:Performed By: #### CBC #### [facility] [address] [place] [address] Dr. Crissy Falcon #0.6 103/ulNormal0.3-0.8The [facility] CenterComment on above:Performed By: #### CBC #### [facility] [address] [place] [address] Dr. Crissy Maryocytes/100 WBC (Bld)4.3 %Normal1.7-12.0[facility] Comment on above:Performed By: #### CBC #### [facility] [address] [place] [address] Dr. Crissy Haro #11.0 103/ulCritically high1.4-6.5The [facility] Comment on above:Performed By: #### CBC #### [facility] [address] [place] [address] Dr. Crissy Tranutrophils/100 WBC (Bld)83.9 %Critically high43.0-75.0The [facility] CenterComment on above:Performed By: #### CBC #### [facility] [address] [place] [address] Dr. Crissy Hyde mean volume (Bld) [Entitic vol]9.0 fLCritically low 9.5-13.5The [facility] CenterComment on above:Performed By: #### CBC #### [facility] [address] [place] [address] Dr. Crissy LandisPLT240 103/ogBssoxm893-898Wtg [facility] CenterComment on above: Performed By: #### CBC #### [facility] [address] [place] [address] Dr. Crissy LandisRBC4.63 106/ulNormal4.20-5.40The [facility] CenterComment on above:Performed By: #### CBC #### [facility] [address] [place] [address] Dr. Crissy LandisWBC13.1 103/ulCritically high4.0-11.0The [facility] CenterComment on above:Performed By: #### CBC #### [facility] [address] [place] [address] Dr. Crissy LandisCT ABD/PELVIS WO CONon 81-91-9684KH ABD/PELVIS WO CONEXAMINATION: CT ABD/PELVIS WO CON, 09/12/2022 8:52 AM [...] calculi. Bladder is decompressed. Bowel: Normal appendix. Peritoneum/retroperitoneum: No significant finding. Lymph nodes: No significant finding. Vessels: No significant finding. Body wall: No significant finding. Reproductive: No significant finding. Bones: No significant finding. IMPRESSION: 7 mm obstructing distal right ureteral calculus with moderate right hydroureteronephrosis. Multiple additional nonobstructive right renal calculi measuring up to 7 mm. Electronically authenticated by: TOD CUMMINS Date: 2022-09-12 13:10NormalThe Rio HospitalCULTURE URINEon 91-22-2446CBEVLXP URINECulture Observations: NO GROWTH.NormalSt. Charles HospitalComment on above:Performed By: #### URCX #### [facility] [address] [place] [address] Dr. Crissy Navarrete URINE PROFILEon 35-29-8339Ijambjjqv Ql (U)NegativeNormal NEGATIVESt. Charles HospitalComment on above:Performed By: #### ITA UMICRO #### [facility] [address] [place] [address] Dr. Crissy LandisClarity (U)CLEARNormalCLEARSt. Charles HospitalComment on above: Performed By: #### ITA UMICRO #### [facility] [address] [place] [address] Dr. Crissy Cordonlor (U)YELLOWNormalYELLOWSt. Charles HospitalComment on above: Performed By: #### ITA UMICRO #### [facility] [address] [place] [address] Dr. Crissy Buckley micrscopic examination will be performed if indicated. NormalSt. Charles HospitalComment on above:Performed By: #### ITA UMICRO #### [facility] [address] [place] [address] Dr. Crissy LandisGlucose Ql (U)NegativeNormalNEGATIVESt. Charles HospitalComment on above:Performed By: #### ITA UMICRO #### [facility] [address] [place] [address] Dr. Crissy LandisHemoglobin Ql (U)LARGEAbnormalNEGATIVETogus Va Medical Center on above:Performed By: #### ITA UMICRO #### [facility] [address] [place] [address] Dr. Crissy LandisKetones Ql (U)NegativeNormalNEGATIVESt. Charles HospitalComment on above:Performed By: #### ITA UMICRO #### [facility] [address] [place] [address] Dr. Crissy LandisLEUKOCYTESTRACEAbnormalNEGATIVEThe [facility] CenterComment on above:Performed By: #### NICOLE JEAN BAPTISTE #### [facility] [address] [place] [address] Dr. Crissy Rodrigueztrite Ql (U)NegativeNormalNEGATIVEThe [facility] CenterComment on above:Performed By: #### NICOLE JEAN BAPTISTE #### [facility] [address] [place] [address] Dr. Crissy LandispH (U)5.0 [pH]Normal5-9The [facility] CenterComment on above: Performed By: #### NICOLE JEAN BAPTISTE #### [facility] [address] [place] [address] Dr. Crissy LandisProtein (U) [Mass/Vol]100 mg/dLAbnormalNEGATIVE/ TRACEThe [facility] CenterComment on above:Performed By: #### NICOLE JEAN BAPTISTE #### [facility] [address] [place] [address] Dr. Crissy LandisSPEC GRAVITY>=1.269Owyjnwgs7.005-<=1.025The [facility] on above:Performed By: #### NICOLE JEAN BAPTISTE #### [facility] [address] [place] [address] Dr. Crissy LandisUR MICRO INDINDICATEDNormalThe [facility] CenterComment on above: Performed By: #### NICOLE JEAN BAPTISTE #### [facility] [address] [place] [address] Dr. Crissy Chambersbilinogen Qn (U)0.2 {Pradip'U}/dLNormal0.2 - 1.0The [facility] CenterComment on above:Performed By: #### NICOLE JEAN BAPTISTE #### [facility] [address] [place] [address] Dr. Crissy LandisPROF CHEM 8 (BAS METB)on 1964Xkbnl gap [Moles/Vol]13.1 mmol/LNormalThe [facility] CenterComment on above:Performed By: #### TSHRFT4, CMP, LIPID #### [facility] [address] [address] [address] Crissy LandisCalcium [Mass/Vol]9.5 mg/dLNormal8.5-10.1[facility] Comment on above:Performed By: #### TSHRFT4, CMP, LIPID #### [facility] [address] [address] [address] Crissy LandisChloride [Moles/Vol]102 mmol/HEhtwst86-408Gur [facility] Comment on above:Performed By: #### TSHRFT4, CMP, LIPID #### [facility] [address] [place] [address] Dr. Crissy LandisCO2 [Moles/Vol]27.9 mmol/ZLimlcb57.0-32.0[facility] Comment on above:Performed By: #### TSHRFT4, CMP, LIPID #### [facility] [address] [address] [address] Crissy LandisCreatinine [Mass/Vol]0.88 mg/dLNormal0.55-1.02The [facility] CenterComment on above:Performed By: #### TSHRFT4, CMP, LIPID #### [facility] [address] [place] [address] Dr. Crissy AmaroGFR-AF SAO TOMEAN>60Normal>=60The [facility] CenterComment on above:Performed By: #### TSHRFT4, CMP, LIPID #### [facility] [address] [place] [address] Dr. Crissy AmaroGFR-NON AF SAO TOMEAN>60Normal>=60The [facility] Centerment on above:Performed By: #### TSHRFT4, CMP, LIPID #### [facility] [address] [place] [address] Dr. Crissy LandisGlucose [Mass/Vol]160 mg/dLCritically xgvd27-090Prh [facility] Centerment on above:Performed By: #### TSHRFT4, CMP, LIPID #### [facility] [address] [address] [address] Crissy LandisPotassium [Moles/Vol]4.0 mmol/LNormal3.5-5.1The [facility] Comment on above:Performed By: #### TSHRFT4, CMP, LIPID #### [facility] [address] [address] [address] Crissy LandisSodium [Moles/Vol]139 mmol/RTyrwoi716-456Jhd [facility] Comment on above:Performed By: #### TSHRFT4, CMP, LIPID #### [facility] [address] [address] [address] Crissy LandisUrea nitrogen [Mass/Vol]19.0 mg/dLCritically high7.0-18.0The [facility] CenterComment on above:Performed By: #### TSHRFT4, CMP, LIPID #### [facility] [address] [address] [address] Crissy Penn nitrogen/Creatinine [Mass ratio]21.6 mg/mgNoUniversity Hospitals Geauga Medical CenterComment on above:Performed By: #### TSHRFT4, CMP, LIPID #### [facility] [address] [address] [address] Crissy Ewing [phone]H SEEN [facility] CenterCom[facility] on above:Performed By: #### WILIAN JEAN BAPTISTEICRO #### [facility] [address] [address] [address] Crissy Garcia identified Cx Nom (U)INDICATEDNoUniversity Hospitals Geauga Medical CenterComment on above:Performed By: #### ITA UMICRO #### [facility] [address] [address] [address] Crissy Gonsalez SEENNormalNONE SEENOhioHealth Hardin Memorial Hospital on above:Performed By: #### ITA UMICRO #### [facility] [address] [address] [address] Crissy Maldonado LM Nom (Urine sed)NONE SEENNormalNONE SEENSt. Charles HospitalComment on above:Performed By: #### ERUR, UMICRO #### [facility] [address] [address] [address] Woodward ChangEpithelial cells LM Ql (Urine sed)RARENormalNONE SEEN /RARESt. Charles HospitalComment on above:Performed By: #### ERUR, UMICRO #### [facility] [address] [address] [address] Crissy LandisMUCOUSNONE SEENNormalNONE SEENSt. Charles HospitalComment on above:Performed By: #### ERUR, UMICRO #### [facility] [address] [address] [address] Crissy LandisCgeawJJS86-72Oelramuo6-6K[facility] HospitalComasc[facility] on above: Performed By: #### ERUR, UMICRO #### [facility] [address] [address] [address] Crissy LandisWBC2-5AbnormalNONE SEENSt. Charles HospitalComment on above: Performed By: #### ERUR, UMICRO #### [facility] [address] [address] [address] Crissy Landis Encounters Encounter DateEncounter TypeCare ProviderFacilityStart: 11-17-2022 End: 47-90-5289jgiivimpalGRYRB ANGLIMFacility:Z8Wputd: 09-12-2022 End: 78-73-1464pxhxdhzrirEXPITJR D KATKOFacility:Q2Nisic: 15-22-4008tammcvpexf MARIXA ANGLIMFacility:H1 Payers DatePayer CategoryPayerPolicy [id number] Summary Purpose Family History No Family History Records Found Advance Directives No Advanced Directives Records Found Additional Source Comments INFORMATION SOURCE (unrecogn ized section and content) DATE CREATED AUTHOR 11/25/2022 [facility] FOR RECORDS PERTAINING TO PATIENTS [...] BE BASED ON THE PRIMARY CLINICAL RECORDS. [employer] provides no warranty or guarantee of the accuracy or completeness of information in this document.
--- OUTSIDE RECORDS SUMMARY | 2025-05-23 09:23 | XMS_ITS | Patient Health Record ---
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 Name Role Phone Christi Hampton Primary Care Provider Franklyn Whitaker Unavailable [phone] Elizabeth Galvan Unavailable [phone] Salma Wick Unavailable Allergies No Known Allergies Results Component Value Reference Range Notes Cologuard Reviewed date:12/31/2024 09:48:55 AM Interpretation: Performing Lab: Notes/Report: Comprehensive Metabolic Pane l Reviewed date:11/01/2024 07:49:04 AM Interpretation: Performing Lab: Notes/Report: [facility] , Sodium 143 136-145 mmol/L Potassium3.83.5-5.1 mmol/KVjvaswka66805-809 mmol/LCarbon Yjafwrv40.521.0-32.0 mmol/LAnion Gap10.4Qicqcdb93742-480 mg/dLBlood Urea Ihkdrssb04.07.0-18.0 mg/dL Creatinine0.890.55-1.02 mg/dLEstimated GFR ( Thais>60>=60 mL/min/1.73m 2Estimated GFR (Non- Kathia>60>=60 mL/min/1.73m 2BUN Creatinine Ratio21.3 Calcium9.18.5-10.1 mg/dLBilirubin Total0.90.2-1.0 mg/dLAspartate Amino Oanwmlqwezh6533-96 U/LAlanine Lcyptwbrvyycgefs1168-47 U/LAlkaline Bvfatwtdffa32 46-116 U/LTotal Protein6.56.4-8.2 g/dLAlbumin Level3.83.4-5.0 g/dLGlobulin2.7 Albumin Globulin Ratio1.4Performing Lab:see noteML - [facility] LB Lipid Panel Reviewed date:11/01/2024 07:49:49 AM Interpretation: Performing Lab: Notes/Report: [facility] ,Uwvdsfcoqwljc922<=150 mg/bGXaqmapagwle789<=200 mg/dLHDL Zlimwfyilej6594-89 mg/dL > or =60 mg/dl - LOW CARDIOVASCULAR RISK <40 mg/dl - HIGH CARDIOVASCULAR RISK LDL Cholesterol Mwbgnwmchc02.0 <100 mg/dl OPTIMAL 100-129 mg/dl NEAR OR ABOVE OPTIMAL 130-159 mg/dl BORDERLINE HIGH 160-189 mg/dl HIGH >190 mg/dl VERY HIGH VLDL QTYBYVFJFHL98.0Chol HDL Ratio2.4 3.3 - 4.4 LOW RISK 4.4 - 7.1 AVERAGE RISK 7.1 - 11.0 MODERATE RISK >11.0 HIGH RISK Performing Lab:see noteML - [facility] LBPOCT A1C Reviewed date:10/25/2024 01:09:58 PM Interpretation: Performing Lab: Notes/Report:XR DEXA axial skeleton Reviewed date:12/06/2024 02:05:47 PM Interpretation: Performing Lab: Notes/Report: Complete Blood Count Auto Diff Reviewed date:06/11/2024 03:05:41 PM Interpretation: Performing Lab: Notes/Report: , [facility] Blood Count10.84.0-11.0 10 3/uLRed Blood Count4.35 4.20-5.40 10 6/rLUkxpvvtslu92.112.0-16.0 g/fGQtdarayqgf72.036.0-48.0 %Mean Corpuscular Wlduym45.681.0-99.0 fLMean Corpuscular Orxkmfzcbx95.426.7-34.0 pg Mean Corpuscular HGB Conc33.629.9-35.2 g/dLRed Cell Distribution Width12.611.0- 15.0 %Platelet Igpvr600930-681 10 3/uLMean Platelet Volume9.49.5-13.5 fL Neutrophils Percent Auto81.443.0-75.0 %Lymphocytes Percent Auto12.420.5-60.0 % Monocytes Percent Auto4.61.7-12.0 %Eosinophils Percent Auto0.20.9-7.0 %Basophils Percent Auto0.90.2-2.0 %Immature Granulocytes Pct Auto0.50.0-0.5 %Neutrophils Absolute Auto8.81.4-6.5 10 3/uLLymphocytes Absolute Auto1.31.2-3.8 10 3/uL Monocytes Absolute Auto0.50.3-0.8 10 3/uLEosinophils Absolute Auto0.00.0-0.7 10 3/uLBasophils Absolute Auto0.10.0-0.1 10 3/uLImmature Granulocytes Abs Auto0.05 0.00-0.03 10 3/uLPerforming Lab:see noteML - [facility] LB Comprehensive Metabolic Panel Reviewed date:06/11/2024 03:05:35 PM Interpretation: Performing Lab: Notes/Report: [facility] ,Nrjmnn505256-394 mmol/LPotassium4.93.5-5.1 mmol/HInzmkccp27933-190 mmol/LCarbon Xuoquhd66.621.0-32.0 mmol/LAnion Gap15.4Mragcli07785-493 mg/dLBlood Urea Mooaberz53.07.0-18.0 mg/dLCreatinine0.940.55-1.02 mg/dLEstimated GFR ( Thais>60>=60 mL/min/1.73m 2Estimated GFR (Non- Kathia>60>=60 mL/min/1.73m 2BUN Creatinine Ratio22.9Xbogjvl9.78.5-10.1 mg/dLBilirubin Total0.70.2-1.0 mg/dL Aspartate Amino Cecapoxavfy2630-29 U/LAlanine Nwebemeyzcntumqq9148-06 U/L Alkaline Ezrvyaqyzkt3842-681 U/LTotal Protein7.26.4-8.2 g/dLAlbumin Level4.23.4- 5.0 g/dLGlobulin3.0Albumin Globulin Ratio1.4Performing Lab:see noteML - [facility] LBLipase Reviewed date:06/11/2024 03:05:29 PM Interpretation: Performing Lab: Notes/Report: [facility] ,Rkxjzl13.016.0-77.0 U/LPerforming Lab:see noteML - [facility] LB Urinalysis and Microscopic Reviewed date:06/11/2024 03:05:23 PM Interpretation: Performing Lab: Notes/Report: [facility] ,Color UrineDK. ORANGEYELLOWClarity UrineCLOUDYCLEARSpecific Waller Urine >=1.0301.005-1.025pH Urine5.55.0-9.0Protein Rztyo947KEI/TRACE mg/dLGlucose Urine UANEGATIVENEGATIVE mg/dLBilirubin UrineSMALLNEGATIVEKetones Nmasg16DHKOBLPF mg/dLBlood UrineLARGENEGATIVENitrite UrineNEGATIVENEGATIVEUrobilinogen Urine1.0 0.2-1.0 EU/dLLeukocyte Esterase UrineTRACENEGATIVEWBC Urine2-5NONE SEEN #/HPFRBC Urine>1000-2 #/HPFBacteria UrineMODERATENONE SEEN #/HPFMucus UrineNONE SEENNONE SEENSquamous Epithelial Cell UrineRARENONE/RARE #/LPFCrystals Seen?None SeenNone Seen #/HPFCast Seen?NONE SEENNONE SEEN #/LPFUrine Culture IndicatedYESPerforming Lab:see noteML - [facility] LBUrine Culture, Routine Reviewed date:06/13/2024 07:34:44 AM Interpretation: Performing Lab: Notes/Report: , [facility]corpUrine Culture, RoutineSee Below For Report Urine Culture, Routine Urine Culture, RoutineMixed urogenital jean Urine Culture, Routine Urine Culture, RoutineLess than 10,000 colonies/mL Urine Culture, Routine Urine Culture, RoutinePerformed at: CB - [facility] Urine Culture, Routine Urine Culture, [address] [place], [place] [id number] Urine Culture, Routine Urine Culture, RoutineLab Director: Vikram Garcia PhD, Phone: [phone] Urine Culture, Routine Performing Lab:see note LC - [facility] LB SEE REPORT - Casual Shoe Inspector Id information not found for OBX-specific senior interactive producer legend CT abdomen pelvis w con Reviewed date:06/11/2024 03:05:17 PM Interpretation: Performing Lab: Notes/Report: Source Facility: [facility]-[address] [place] [address] [place] [address] CT Scan Report Signed Patient: NAVA JONES MR#: [id number] : 1965 Acct:[id number] Age/Sex: 58 / F ADM Date: 06/11/24 Loc: ER Attending Dr: Ordering Physician: Johanny Carias Date of Service: 06/11/24 Procedure(s): CT abdomen pelvis w con Accession Number(s): [id number] cc: MARIXA ESPINO[address] [address] Patient Name: NAVA JONES MRN: [id number] date: 1965 Sex: F Assigned Patient Location: ER Current Patient Location: ER Accession/Order Number: [id number] Exam Date: 06/11/2024 12:50 Report Date: 06/11/2024 13:47 At the request of: JOHANNY CARIAS Procedure: CT abdomen pelvis w con EXAM: CT abdomen pelvis w con HISTORY: rlq pain, possible stain COMPARISON: None. TECHNIQUE: Following the intravenous administration of 100 cc of Omnipaque 300, axial soft tissue windows of the abdomen and pelvis were performed with coronal and sagittal reformats. Findings: ABDOMEN: Subtle focal fatty infiltration within segment 4 of the liver adjacent to the falciform ligament. The gallbladder, spleen, pancreas, and adrenal glands are unremarkable. Unremarkable left kidney. Nonobstructing right renal stones. The largest measures approximately 0.7 cm. There is mild to moderate right-sided collecting system dilatation to the level of the proximal ureter where there is a nonobstructing 0.5 cm stone. Evaluation of the bowel is limited given the absence of oral contrast. No bowel obstruction. The appendix is nondilated. The aorta is normal caliber. Mild atherosclerotic disease. No enlarged abdominal lymph nodes or free abdominal fluid. Pelvis: The bladder is nondistended limiting its evaluation. The uterus is present and unremarkable within the limits of CT. No enlarged pelvic lymph nodes or free pelvic fluid. No aggressive sclerotic or lytic osseous lesions. CT/CT abdomen pelvis w con IMPRESSION: 1. Obstructing stone within the proximal right ureter resulting in mild to moderate right-sided collecting system dilatation 2. Nonobstructing right renal stones. 3. Other nonemergent findings, as described above. Electronically authenticated by: ROSELIA LONDON Date: 06/11/2024 13:47 Dictated By: Roselia London M.D. Signed By: 06/11/24 3231 DD/ 7926 TD/TT: Rn Imaging:MM tomosynthesis screening BI Reviewed date:11/28/2024 05:12:06 PM Interpretation: Performing Lab: Notes/Report: Source Facility: [place] [address] Mammography Report Signed Patient: NAVA JONES MR#: [id number] : 1965 Acct:[id number] Age/Sex: 59 / F ADM Date: 11/28/24 Loc: RAD Attending Dr: Salma Wick NP Ordering Physician: Salma Wick NP Results : Date of Service: 11/28/24 Follow Up: Procedure(s): MM tomosynthesis screening BI Accession Number(s): [id number] cc: Salma Wick NP Patient Name: NAVA JONES MR#: [id number] : 1965 Exam Date: 11/28/2024 Ordering Doctor: SALMA WICK RADIOLOGY REPORT PROCEDURE: MM TOMOSYNTHESIS SCREENING BI COMPARISON: MM TOMOSYNTHESIS SCREENING BI, 11/21/2023. MG MAMM SCREEN 3D JUSTO CAD, 11/17/2022. MG MAMM SCREEN 3D JUSTO CAD, 10/23/2021. MG MAMM JUSTO SCRN W CAD DIG, 11/02/2013. INDICATIONS: Screening Calculator Name NCI Breast Cancer Risk Assessment Tool 5 Year Breast Cancer Risk 2.70% Lifetime Breast Cancer Risk 13.60% Personal Breast Cancer No Personal Ovarian Cancer No Treatments None Family Cancers Mother with breast cancer at age 67. LOCATION: [facility] BREAST COMPOSITION: There are scattered areas of fibroglandular density. FINDINGS: DIAGNOSTIC CATEGORY 1--NEGATIVE. RIGHT BREAST: No significant suspicious finding. LEFT BREAST: No significant suspicious finding. RECOMMENDATIONS: ROUTINE MAMMOGRAM AND CLINICAL EVALUATION IN 12 MONTHS. PLEASE NOTE: A NORMAL MAMMOGRAM DOES NOT EXCLUDE THE POSSIBILITY OF BREAST CANCER. A CLINICALLY SUSPICIOUS PALPABLE LUMP SHOULD BE BIOPSIED. Dictated by: Chau Sanchez DO on 11/28/2024 at 15:14 Approved by: Chau Sanchez DO on 11/28/2024 at 15:15 Dictated By: Chau Sanchez M.D. Signed By: 11/28/24 1516 DD/ 1515 TD/TT: Rn Imaging: Reason For Referral No Information Medications Medication SIG (Take, Route, Frequency, Duration) Notes Start Date End Date Status Blood Glucose Test Strip - 1 test strip once daily when needed; Duration: 90 days please change to brand covered by insurance 12/08/2023 ActiveBlood Glucose Meter -1 meter check once daily when neededplease change to brand covered by zweehipnl72/23/2024ctiveAlendronate Sodium 70 MG1 tablet 30 minutes before the first food, beverage or medicine of the day with plain water Orally once a week; Duration: 84 daysActiveAtorvastatin Calcium 40 MG1 tablet Orally Once a day; Duration: 90 daysActive Social History Tobacco Use: Social History Observation Description Date Details (start date - stop date) Former Smoker 07/18/1975 - 07/18/2021 Sex Assigned At : Social History Observation Description Sex Assigned At Female Household Question Answer Notes Number of adults in household: 2 Number of children in household:0Tobacco Use/Smoking Question Answer Notes How long has it been since you last smoked? 1-5 years patient entered data When did you start smoking? 07/18/1975 p atient entered data Tobacco use: former smoker patient enter ed data When did you stop smoking? 07/18/2021 chana ghosh entered data CAGE-AID Questionnaire (2018 Edition) Question Answer Notes Have you ever felt that you ought to cut down on your drinking or drug use? No patient entered data Have people annoyed you by c riticizing your drinking or drug use? No patient entered data Have you ever felt bad or gu ilty about your drinking or drug use? No patient entered data Have you ever had a drink or used drugs first thing in the morning to steady your nerves or to get rid of a hangover? No patient entered data CAGE-AID Score 0 InterpretationNegativePRAPARE Question Answer Notes Date Completed/Updated: 10/25/2024 elangeronimo nt entered data What is your current housing situation? I have housing patient entered data Are you worried about losing your housing? No patient entered data What is the highest level of school that you have finished? High school diploma or GED patient entered data What is your current work situation? Otherwise unemployed but not seeking work (ex. 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 Check all that apply I do not have problems meeting my needs Has lack of transportation kept you from medical appointments, meetings, work or from getting things needed for daily living?NoHow often do you see or talk to people that you care about and feel close to? (For example: talkingto friends on the phone, visiting friends or family, going to faith or club meetings)1 or 2 times a weekpatient entered dataHow stressed are you? Stress is when someone feels tense, nervous, anxious, or can't sleep at nightbecause their mind is troubledNot at allpatient entered dataIn the past year have you spent more than 2 nights in a row in a usp, fdc, usp center, orjuvenile correctional facility?Nopatient entered dataAre you a refugee?Nopatient entered dataWhat country are you from?[place] Statespatient entered dataDo you feel physically and emotionally safe where you currently live?Yespatient entered dataIn the past year, have you been afraid of your partner or ex-partner?Nopatient entered dataPRAPARE Score:4 Problems Problem Type SNOMED Code ICD Code Onset Dates Problem Status W/U Status Risk Notes Problem Hyperlipidemia (46987628) Hyperlipidemia (E78.5) ActiveconfirmedProblemPrediabetes (283634893)Prediabetes (R73.03)Activeconfirmed -last A1C at 6.1% on 11/21/23 and persistently less than 6.3% w/o any medication -CW healthy dietary choices and physically active, f/u in 6 months ProblemOsteoporosis (14984402)Osteoporosis (M81.0)Activeconfirmed Comment:1. T score in spine -2.4 & in hip -2.7 2. Start Calcium 1200mg/d & Vit D 800 IU/d 3. Start aledronate 70mg qwk. Instructions on how to take sent to pharmacy also. 4. Nikos call pt to notify of results., ProblemTobacco user (228246588)Disorder, tobacco use (305.1) (F17.200)07/01/2008 Problem resolvedconfirmed Comment:she continues to cut back on tobacco use currently smokes 1ppd wants to try meds to help her quit, ProblemPostcoital bleeding (33812993)PCB (post coital bleeding) (N93.0)Problem resolvedconfirmedComment:single episode, started tuesday, then has had persistent bleeding since, dark red,,ProblemAnxiety (23993217)Situational anxiety (F41.8) Problem resolvedconfirmed Vital Signs Heart Rate 92 /min 05/13/2025 Swapna Alcaraz 05/13/2025 09:27:31 AM EDT > Temperature 98.4 degrees Fahrenheit 05/13/2025 Melissa Duran 05/13/2025 09:27:31 AM EDT > Respiratory Rate 16 /min 05/13/2025 Melissa Alcaraz 05/13/2025 09:27:31 AM EDT > Height-cm 157.48 cm 05/13/2025 Swapna Alcaraz 05/13/2025 09:27:31 AM EDT > Oximetry 96 % 05/13/2025 Andrea Alcaraze williams 05/13/2025 09:27:31 AM EDT > Blood pressure diastolic 71 mm Hg 05/13/2025 Melissa Hanley 05/13/2025 09:27:31 AM EDT > Weight-kg 59.38 kg 05/13/2025 Swapna Alcaraz 05/13/2025 09:27:31 AM EDT > Height 62.00 in 05/13/2025 Swapna Alcaraz 05/13/2025 09:27:31 AM EDT > Blood pressure systolic 121 mm Hg 05/13/2025 Melissa Duran 05/13/2025 09:27:31 AM EDT > Weight 130.9 lbs 05/13/2025 Swapna Alcaraz 05/13/2025 09:27:31 AM EDT > BMI 23.94 kg/m2 05/13/2025 Swapna Alcaraz 05/13/2025 09:27:31 AM EDT > Encounters Encounter Location Date Provider Diagnosis Main [address] [place], [place] [id number] 10/25/2024 Salma Myerholtz Prediabetes R73.03 ; Osteoporosis M81.0 ; Hyperlipidemia, unspecified hyperlipidemia type E78.5 ; Screening mammogram for breast cancer Z12.31 ; Screening for colorectal cancer Z12.11 and BMI 23.0-23.9, adult Z68.[address] [id number] 05/13/2025 Christi Perdomoman Encounter for [facility] ss examination in adult Z00.00 ; Hyperlipidemia E78.5 ; Prediabetes R73.03 ; Dietary counseling Z71.3 ; Exercise counseling Z71.82 and Screening for thyroid disorder Z13.29 [address] [place] [id number] 07/13/2024 Elizabeth Galvan [address] [place], [place] [address]/11/2024Katherine Myerholtz Osteoporosis M81.0 and Prediabetes R73.64Tbew0992 [place], [place] [id number]/Katherine EgxwqikhmFpbo[address] [place], [place] [id number] 10/15/2024Katherine CcllroiehWmjs4150 [place], [place] [id number]/ Salma FmcvlsogbUoqu8532 [place], [place] [id number]/Katherine JyioooadxLqfx7806 [place], [place] [id number]/Katherine Myerholtz [address] [place], [place] [address]/01/2025Osirisdana Wick Hyperlipidemia, unspecified hyperlipidemia type E78.5 and Osteoporosis M81.0 Assessments Encounter Date Diagnosis (ICD Code) Assessment Notes Treatment Notes Treatment Clinical Notes Section Notes 08/22/2024 Osteoporosis (ICD-10 - M81.0) 10/25/2024Prediabetes (ICD-10 - R73.03)A1C stable without medication. Encouraged healthy diet and exercise. F/u 6 months & PRN10/25/2024Osteoporosis (ICD-10 - M81.0)Pt is stable on current medications. Will continue current medications. Will order Dexa scan. F/u 6months & PRN01/21/2025Hyperlipidemia, unspecified hyperlipidemia type (ICD-10 - E78.5)05/13/2025Hyperlipidemia (ICD-10 - E78.5) HLD Stable. Pt to continue current medications. Labs ordered Encouraged healthy diet and exercise, if able. F/U 6 month & PRN 05/13/2025Encounter for wellness examination in adult (ICD-10 - Z00.00) Pt is [...] detail today. Will call with lab results 01/21/2025Osteoporosis (ICD-10 - M81.0)05/13/2025Prediabetes (ICD-10 - R73.03) Pt has Prediabetes Discussed risk of getting diagnosed w/ diabetes if unable to make lifestyle changes and modify riskfactors Pt encouraged to reduce carbohydrate, sugar, pop intake, prioritize protein, fruits and vegetables,and water intake. Pt also encouraged to exercise if able to reduce their risk. Labs ordered F/U 6 months & PRN 10/25/2024Hyperlipidemia, unspecified hyperlipidemia type (ICD-10 - E78.5)Pt is stable on current medications. Will continue current medications. Will order routine blood work. F/u 6 months & PRN08/22/2024Prediabetes (ICD-10 - R73.03) 10/25/2024Screening mammogram for breast cancer (ICD-10 - Z12.31)05/13/2025 Dietary counseling (ICD-10 - Z71.3)Encoruaged eating a healthy, [...] diminished aches and pain, and better metabolism. 10/25/2024Screening for colorectal cancer (ICD-10 - Z12.11)10/25/2024MI 23.0- 23.9, adult (ICD-10 - Z68.23)Body Mass Index: Care Instructions material was vybndud0605/13/2025Screening for thyroid disorder (ICD-10 - Z13.29) Plan Of Treatment Pending Test Test Name Order Date ThinPrep Pap Test, Image-Guided ([id number]) 09/04/2015 LIPID PANEL WITH REFLEX TO DIRECT LDL TSH + FREE T4 PROFILE 05/13/2025 COMPREHENSIVE METABOLIC PANEL WITH GFR 1 HEMOGLOBIN A1C 05/13/2025 Next Appt Details Provider Name:Christi garnica, 11/11/2025 10:00:00 AM, [address] [place], [place], [id number], Insurance Providers Payer Name Payer Address Payer Phone Subscriber Number Group Number Insured Name Patient Relationship to Insured Coverage Start Date Coverage End Date [employer] ABD [facility] [address] [place], [place] [id number] Nava Anand Self - patient is the insured Medicaid ABD after [address] [place], [place] [id number], AmandaSelf - patient is the [id number] 2021 Medical (General) History Medical History History ICD Code Burn of chest wall HyperlipidemiaKidney stonesTraumatic wrist fractureOsteoporosisAnxietySurgical History Surgery Date(Month/Year) right arm surgery Section - 1Tubal LigationKIDNEY [id number]
--- OUTSIDE RECORDS SUMMARY | 2025-05-23 09:24 | XMS_ITS | Clinical Summary ---
Author Organization [facility] tem Address [id number] [address] [place] [address] Care Team Providers Care Twister Frame Tender Name Role Phone Brittany Rice APRN-INDUSTRIAL SEAMSTRESS Primary Care Provider [phone] Allergies No known active allergies Medications MedicationSigDispense QuantityRefillsLast FilledStart DateEnd DateStatus atorvastatin (LIPITOR) 40 mg tablet Active Family History Medical HistoryRelationNameCommentsDiabetes type IIFatherBreast cancerMother RelationNameStatusCommentsFatherMotherDeceased Social History Tobacco UseTypesPacks/DayYears UsedDateSmoking Tobacco: FormerSmokeless Tobacco: Never Comments:QUIT 2018 Alcohol UseStandard Drinks/WeekCommentsNot Currently0 (1 standard drink = 0.6 oz pure alcohol)ChildcareAnswerDate GetdibzyWblrwqpuaNcmkxeo29/12/2019Employment AnswerDate HlxzukebVuvbdolaatNwbwrau95/12/2019Purpose - LifeAnswerDate Recorded Purpose and direction in jpneMaeztqv30/11/2021CommentsUnknownSex and Gender InformationValueDate RecordedSex Assigned at BirthNot on fileLegal Sex Pqjkaf5402/20/2015 11:28 AM EDTGender IdentityNot on fileSexual OrientationNot on file Plan of Treatment Health MaintenanceDue DateLast DoneCommentsDepression Sjqgflusg16/04/1977Tobacco Uwwfjbbrn62/04/1977Adult BMI Ufyxqyqew96/04/1983DTaP,Tdap and Td Vaccines (1 - Tdap)1983Pap Smear1985Zoster (Shingles) Vaccine (1 of 2)2014 Influenza Ot[place]w4203/18/2025RSV ( or age 60+ yrs) (1 - 1-dose 75+ series) 2039 [employer] Not on file Insurance Care Teams Team MemberRelationshipSpecialtyStart DateEnd Date Brittany Rice, OLE-INDUSTRIAL SEAMSTRESS [address] [place] [address] PCP - GeneralNurse Practitioner10/25/18
[2025-05-23 10:47] LABS: Alanine Aminotransferase 21 U/L (14-59); Albumin Globulin Ratio 1.3; Albumin Level 3.9 g/dL (3.4-5.0); Alkaline Phosphatase 75 U/L (46-116); Anion Gap 11.2; Aspartate Amino Transferase 13 U/L (15-37); Blood Urea Nitrogen 16.0 mg/dL (7.0-18.0); Calcium 9.1 mg/dL (8.5-10.1); Carbon Dioxide 27.8 mmol/L (21.0-32.0); Chloride 107 mmol/L (98-107); Cholesterol 132 mg/dL (<=200); Estimated GFR (African America >60 (>=60 mL/min/1.73m^2); Estimated GFR (Non-African Ame >60 (>=60 mL/min/1.73m^2); Globulin 3.0 g/dL; Glucose 106 mg/dL (74-106); HDL Cholesterol 44 mg/dL (40-60); Potassium 4.0 mmol/L (3.5-5.1); Sodium 142 mmol/L (136-145); Thyroid Stimulating Hormone 1.348 uIU/mL (0.358-3.740); Total Protein 6.9 g/dL (6.4-8.2); Triglycerides 81 mg/dL (<=150); VLDL CHOLESTEROL 16.2 mg/dL
== END 2025-05-23 09:19 | disposition home or self-care (01) ==
LOC: LAB 09:19
DX: R73.03 Prediabetes (principal); E78.5 Hyperlipidemia, unspecified; Z13.29 Encounter for screening for other suspected endocrine disorder
CPT/HCPCS: 36415; 80053; 80061; 83036; 84439; 84443